=== PATIENT | male | born 1960 | race Caucasian/White ===

== ENCOUNTER 2019-03-03 04:15 | Outpatient (CLI) | payer BC, SELFPAY ==
[2019-03-03 11:17] LABS: ALT 27 U/L (12-78); AST 14 U/L (15-37); Alkaline Phosphatase 55 U/L (46-116); Anion Gap 5.6 mmol/L (3-11); BUN 19 mg/dL (7-18); Bilirubin, Total 0.5 mg/dL (0.2-1.0); CO2 30.4 mmol/L (21.0-32.0); CREATININE 0.85 mg/dL (0.70-1.30); Calcium 9.1 mg/dL (8.5-10.1); Chloride 104 mmol/L (98-107); Glucose 96 mg/dL (70-100); Potassium 4.8 mmol/L (3.5-5.1); Sodium 140 mmol/L (136-145); TSH 1.88 uIU/mL (0.36-3.74); Total Protein 7.2 g/dL (6.4-8.2)
== END 2019-03-03 04:35 ==
PROVIDERS: PCP Emergency Medicine; Visit Provider Emergency Medicine
DX: R00.2 Palpitations (principal)
CPT/HCPCS: 36415; 80053; 84443

== ENCOUNTER 2019-03-06 01:48 | Outpatient (CLI) | payer BC, SELFPAY | END 2019-03-06 02:08 | PROVIDERS: PCP Emergency Medicine; Visit Provider Emergency Medicine | DX: R00.2 Palpitations (principal); I49.1 Atrial premature depolarization | CPT/HCPCS: 93225 ==

== ENCOUNTER 2019-03-09 09:40 | Outpatient (CLI) | payer BC, SELFPAY ==
--- NOTE | 2019-03-10 15:46 | HOLTER_ITS ---
DATE OF DICTATION: March 10, 2019 INDICATION: Palpitations 48-HOUR HOLTER MONITOR Baseline sinus rhythm. Average heart rate 77 bpm, minimum heart rate 53 bpm, maximum heart rate 168 bpm. Rare ventricular ectopy. One isolated 5-beat run of non-sustained VT. Rare isolated PAC's. No significant pauses or bradyarrhythmias. No diary entries.
== END 2019-03-09 10:00 ==
PROVIDERS: PCP Emergency Medicine; Visit Provider Emergency Medicine
DX: R00.2 Palpitations (principal); I49.1 Atrial premature depolarization
CPT/HCPCS: 93226

== ENCOUNTER 2019-12-04 14:56 | Inpatient (IN) | payer BC, SELFPAY ==
[2019-12-04] VITALS (53 sets, daily range): BP systolic 91–106; BP diastolic 62–87; PULSE 0–137; RESP 12–30; TEMP 36.7–38.3; O2SAT 84–100
[2019-12-04] MEDS: Normal Saline Flush 10 ML SYR IVP ×2 (15:30→22:40)
--- NOTE | 2019-12-04 15:30 | DI.CT_ITS ---
EXAM: CT CHEST PE ABD PELVIS W CLINICAL HISTORY: abdominal pain RLQ, n/v, fever, SOB. TECHNIQUE: Imaging Protocol: Axial computed tomography images with coronal and sagittal reformatted images were created and reviewed CONTRAST MATERIAL: Intravenous: Omnipaque 350 Contrast volume:72 ml Contrast route:IV - Oral: No no COMPARISON: CHEST 2 VIEWS PA,LAT from 03/31/2012 FINDINGS: CHEST: Heart and great vessels: There is no evidence pulmonary emboli or aortic dissection. Aortic root is dilated at 4.5 cm. The ascending aorta measures 3.1 cm. There is mild left ventricular enlargement. No coronary artery calcifications are visible. There is no significant aortic calcification. There are no pleural or pericardial effusions. Adenopathy: None. Lungs: No pulmonary nodules, mass or infiltrate. There are mild emphysematous changes at the lung ap ices. There are dependent changes. Mild scarring is seen laterally in the left chest. Bones: There are old left rib fracture deformities. A fixation plate is noted in the left clavicle. ABDOMEN: Liver: Normal density. No measurable mass. Gallbladder and biliary tract: No radiodense calculus or dilation. Pancreas: Normal density, no abnormal calcifications or inflammatory process. Spleen: Normal. Kidneys: Normal size, contour and axis. No radiodense stones or obstructive uropathy. No masses seen. Adrenal glands: No masses seen. Abdominal Aorta: Abdominal portion non-dilated. Ectatic and mildly calcified. PELVIS: Bladder: No gross wall thickening, focal mass or stones. Bowel: There is fluid in the stomach. The appendix is dilated to 14 millimeters. There is surroundin g stranding in the fat. No abscess, free air or free fluid is seen. There is mild reactive small bow el dilatation. There are scattered diverticula in the sigmoid colon but no evidence of diverticuliti s. Bones: Degenerative disc changes. Slight compression of the superior endplate of L 2, chronic. Reproductive organs: Mildly enlarged prostate. Lymph nodes: Unremarkable. Impression: Findings consistent with acute appendicitis. No abscess or perforation. No acute abnormality is see n in the chest. DATA REPOSITORY: All CT scans at this facility are submitted to the National Radiology Data Registry (NRDR) Dose Index Registry (DIR) with the [employer] (ACR). RADIATION OPTIMIZATION: All CT scans at this facility use at least one of these dose optimization te chniques: automated exposure control; mA and/or kV adjustment per patient size (includes targeted exa ms where dose is matched to clinical indication); or iterative reconstruction.
[2019-12-04] MEDS: Acetaminophen 500 MG TAB 1000 MG PO (15:36)
[2019-12-04] MEDS: Normal Saline 1,000 ML 1000 ML IV ×2 (15:38→17:00)
[2019-12-04] MEDS: Ondansetron 4 MG/2 ML VIAL IVP (15:42)
[2019-12-04] MEDS: HYDROmorphone 2 MG/ML VIAL 1 MG IVP (15:44)
[2019-12-04 15:50] LABS: HCT 44.7 % (40.0-50.0); HGB 15.8 g/dL (13.5-17.5); Mean Corp. HGB Concentration 35.3 g/dL (32.0-36.0); Mean Corpuscular Hemoglobin 32.8 pg (27.0-33.0); Mean Corpuscular Volume 92.7 fL (80-95); Mean Platelet Volume 10.1 fL (8.0-11.0); RBC 4.82 m/cumm (4.50-6.00); RBC Distribution Width 12.6 % (11.8-14.1)
[2019-12-04 16:09] LABS: ALT 29 U/L (16-63); AST 19 U/L (15-37); Albumin 3.9 g/dL (3.4-5.0); Alkaline Phosphatase 84 U/L (46-116); Anion Gap 10.7 mmol/L (3-11); BUN 15 mg/dL (7-18); Bilirubin, Total 1.9 mg/dL (0.2-1.0); CO2 24.3 mmol/L (21.0-32.0); Calcium 9.4 mg/dL (8.5-10.1); Chloride 100 mmol/L (98-107); Diff Comment Manual Differential; Estimated GFR 44.46 (mL/min/1.73m2); Glucose 136 mg/dL (74-106); Lipase 87 U/L (73-393); Potassium 3.8 mmol/L (3.5-5.1); RBC Morphology Normal; Sodium 135 mmol/L (136-145); Total Protein 7.6 g/dL (6.4-8.2)
[2019-12-04 16:10] LABS: Absolute Lymphocyte Count 0.11 k/cumm (1.2-3.4); Absolute Neutrophil Count 1.66 k/cumm (1.2-6.7); Platelet Count 233 x1000/uL (130-400)
--- NOTE | 2019-12-04 16:21 | ED.GENADUL_ITS ---
Discharge Plan Disposition Patient Disposition: OTHER Discharge Details Chief Complaint: Abd Prob Clinical Impression: Appendicitis Admit Date/Time: 12/04/19 18:54 Admit Provider: Olga Forrest Attending Provider: Olga Forrest Primary Care Provider: Harpal Damian ED Provider: Elijah Mckoy Discharge Data Discharge Date/Time-TO BE ENTERED AT DEPARTURE: 12/04/19 19:33 Medical Decision Making <NURIS Denise - Last Filed: 12/05/19 08:39> 58-year-old patient presenting the emergency room appearing quite uncomfortable at this time. Patient appears somewhat flushed and ill-appearing. Patient is notably tachycardic. Patient reports 2-1/2 days of abdominal pain associated with several episodes of vomiting after any attempted p.o. intake. Patient reports no bowel movements in the last 3 days. Patient denies any obvious chest pain however does report mild shortness of breath on arrival to the emergency room and is reporting feeling somewhat anxious. Patient reports abdominal pain 8 out of 10 throughout the last 2 days somewhat improved to 7 out of 10 at this time associated several episodes of vomiting and mild persistent nausea. Patient reports pain is constant causing difficulty sleeping in the last 2 days. Patient reports today he began to feel somewhat febrile and chilled. Patient has a temperature of 100.1 at this time on initial presentation patient does appear uncomfortable, has clear breath sounds, was notably tachycardic. Patient has hypoactive bowel sounds throughout has moderate upper right-sided abdominal tenderness, mild right lower abdominal tenderness however this is where patient indicates the majority of his pain. Patient is guarding his abdominal exam. Very mild rebound noted on the right with palpation of the left. No obvious dis tention. No abdominal bruising. We will plan to obtain IV access, check labs and order CT of his chest abdomen and pelvis. We will plan to include the chest as patient is complaining of mild shortness of breath and has a fever to rule out any obvious Covid findings or pulmonary embolism given his notable tachycardia on initial presentation. We will give Dilaudid and Zofran for symptomatic relief as well as Tylenol for fever control. 1 L of IV fluid ordered. Initial EKG reveals a heart rate of 123, sinus tachycardia, nonspecific ST depressions noted in V4 and V5 and V6, 1 mm of depression noted. This was reviewed with Dr. Thomas Initial labs reveal leukopenia with a WBC of 1.8. 26 bands noted Patient signed out pending CT evaluation in disposition. <NURIS De La Rosa - Last Filed: 12/04/19 18:43> I assumed care of this 58-year-old gentleman at shift change pending the rest of his laboratory values, CT imaging, and final disposition. Patient was in CT, it was brought to my attention that he seemed to have some confusion. Will obtain CT of his head without contrast as well given his fever, potential altered mental status. He has had a right lower abdominal pain for the past 2-1/2 days associate with nausea, vomiting, low-grade fever. He does report chronic mild shortness of breath. Upon evaluation he appears in mild distress, head normocephalic, moist mucous membranes, lungs clear to auscultations, heart tachycardia at 112. Abdomen with right lower quadrant discomfort, guarding, rebound, bowel sounds equal throughout. Examination is certainly concerning for a surgical abdomen. During my evaluation he did not seem altered to me. Fever is increasing after the p.o. Tylenol was given, a second liter of IV fluid given. Upon reevaluation heart rate of 102. Laboratory values reveal a white count of 1.8, platelets 233, absolute lymphocytes 0.11, absolute monocytes 0.00. Creatinine of 1.6 with estimated GFR of 44.46. Lactate of 3.1. Total bilirubin 1.9 CT of head, as above, was added on and unfortunately it was performed with contrast. Per virtual radiology CT was unremarkable. CT chest, abdomen, pelvis read by virtual radiology as acute appendicitis, 14 mm, positive stranding, positive fluid level within the appendix. No obvious current perforation. CT findings discussed with patient. He was given 3.375 of IV Zosyn. Call placed out to Dr. Forrest, surgical team. I spoke with NURIS Jackson, she is aware of the case, and accepts admission. Given patient will be admitted, COVID testing to be obtained. Anesthesia did call me regarding the initial presentation and question of subtle ST depression in the EKG. Now that the patient has received 2 L IV fluid and heart rate is more appropriate will obtain repeat EKG to further assess. He denies any chest pain to me whatsoever. There was a delay in the initial troponin that was ordered however when it resulted it was less than 0.05. Repeat EKG obtained at 1753. Reviewed interpreted with Dr. Thomas. Sinus rhythm, ventricular rate of 94. Appears to have inverted T wave, in no acute ST segment elevation or depression. NURIS Jackson to the ER to evaluate the patient. Pending admission Medical Records Medical records reviewed: Yes I reviewed the patient's medical records. Lab Data Lab results reviewed: Yes I reviewed the patient's lab results. Lab results narrative: 12/04/19 16:15 Blood Blood Culture - Pending 12/04/19 15:30 Blood Blood Culture - Pending Laboratory Tests Range/Units 12/04/19 12/04/19 12/04/19 15:30 15:30 15:30 WBC (4.4-10.8) k/cumm 1.80 L* RBC (4.50-6.00) m/cumm 4.82 Hgb (13.5-17.5) g/dL 15.8 Hct (40.0-50.0) % 44.7 MCV (80-95) fL 92.7 MCH (27.0-33.0) pg 32.8 MCHC (32.0-36.0) g/dL 35.3 RDW (11.8-14.1) % 12.6 Plt Count (130-400) x1000/uL 233 MPV (8.0-11.0) fL 10.1 Immature Gran % See Differential Neutrophils % 66.0 Band Neutrophils % % 26.0 Lymphocytes % 6.0 Monocytes % 0.0 Eosinophils % 0.0 Basophils % 0.0 Metamyelocytes % % 2.0 Absolute Neutrophils (1.2-6.7) k/cumm 1.66 Absolute Lymphocytes (1.2-3.4) k/cumm 0.11 L Absolute Monocytes (0.11-0.7) k/cumm 0.00 L Absolute Eosinophils (0.0-0.7) k/cumm 0.00 Absolute Basophils (0.0-0.2) k/cumm 0.00 Differential Comment Manual differential RBC Morphology Normal Sodium (136-145) mmol/L 135 L Potassium (3.5-5.1) mmol/L 3.8 Chloride (98-107) mmol/L 100 Carbon Dioxide (21.0-32.0) mmol/L 24.3 Anion Gap (3-11) mmol/L 10.7 BUN (7-18) mg/dL 15 Creatinine (0.70-1.30) mg/dL 1.60 H Estimated GFR/1.73 m2 (mL/min/1.73m2) 44.46 Glucose (74-106) mg/dL 136 H Lactate (0.6-1.4) mmol/L 3.1 H* Calcium (8.5-10.1) mg/dL 9.4 Total Bilirubin (0.2-1.0) mg/dL 1.9 H AST (15-37) U/L 19 ALT (16-63) U/L 29 Alkaline Phosphatase (46-116) U/L 84 Total Protein (6.4-8.2) g/dL 7.6 Albumin (3.4-5.0) g/dL 3.9 Lipase (73-393) U/L 87 HPI <NURIS Denise - Last Filed: 12/05/19 08:39> General Date/Time Provider Initiated Documentation: 12/04/19 15:04 . HPI Narrative: This is a 58-year-old patient presenting to the emergency room after complaining of 2-1/2 days of abdominal pain associated with the vomiting approximately 4 times in the last 2 days. Patient reports after moving a heavy shed on Wednesday afternoon he went in to have lunch. Patient reports he vomited at lunchtime after trying to eat. Patient reports later in the evening he noted onset of lower right-sided abdominal pain which radiated toward the left side of his abdomen. Patient reports his pain at a 8 out of 10. Patient ports difficulty sleeping Wednesday evening, symptoms persisted through Wednesday, any attempted eating he reports vomiting. Patient reports fairly constant 8 out of 10 pain. Patient again had difficulty sleeping on Wednesday evening. Patient reports today he developed onset of a febrile sensation with mild chills. Denies chest pain. Patient reports abdominal pain is now localized in the right lower quadrant. Denies radiation toward his back. Patient denies urinary urgency, frequency or dysuria. Patient reports persistent nausea today. Patient ports increase in ill feeling today although abdominal pain has somewhat improved to approximately 6 or 7 out of 10 pain. Patient reports feeling dehydrated as he is been unable to hold down fluid and food. Patient does report in route to the emergency room he began to develop mild shortness of breath. Denies chest pain. Worsen with food intake, no significant alleviating factors. No history of similar. Only medication is multivitamin. Related Data Home Medications Medication Instructions Recorded Confirmed multivitamin 1 tab PO DAILY 10/13/18 12/04/19 Allergies Allergy/AdvReac Type Severity Reaction Status Date / Time morphine Allergy Intermediate ITCH Verified 12/04/19 15:04 General Stated Complaint: Abd Prob BOUBACAR: 3 Review of Systems <NURIS Denise - Last Filed: 12/05/19 08:39> All systems reviewed & are unremarkable except as noted in HPI and below Constitutional Constitutional: Reports chills, Reports fever(s) and Reports malaise Cardiovascular Cardiovascular: Reports dyspnea (Onset in route to the ER, patient is feeling anxious) Respiratory Respiratory: Reports cough (Chronic, unchanged for 6 months) and Reports dyspnea (Onset in route to the ER, patient is feeling anxious) Gastrointestinal Gastrointestinal: Reports abdominal pain, Reports constipation (X3 days), Denies diarrhea, Reports nausea and Reports vomiting Genitourinary Genitourinary: Denies difficulty urinating, Denies dysuria, Denies urinary frequency and Denies urinary urgency PFSH <NURIS Denise - Last Filed: 12/05/19 08:39> Medical History (Updated 12/04/19 @ 17:41 by Michelle Jackson) Alcohol intake above recommended sensible limits (Chronic) Carpal tunnel syndrome (Chronic) right Dermoid cyst of left lower extremity (Chronic 02/15/17) History of palpitations (Acute) see holter of 03/2019 Left hydrocele (Resolved) Left hydrocele (Chronic 08/21/16) Palpitations (Acute) Polyp of colon (Resolved) TUBULAR ADENOMA and hyperplastic polyps Raynaud's syndrome (Chronic) Sciatica (Chronic) Shoulder pain (Chronic) right Tobacco use disorder (Chronic) chews Tubular adenoma of colon (Chronic 10/21/16) Unilateral inguinal hernia (Chronic) right Surgical History (Updated 12/04/19 @ 18:03 by Michelle Jackson) Clavicle fracture (Acute) Colonoscopy - IV Sedation (10/21/16) History of nasal surgery (Acute) KNEE REPAIR LEFT Family History Mother No problems noted. Father Essential hypertension Stroke Sister No problems noted. Brother No problems noted. Brother No problems noted. Grandfather No problems noted. Social History Smoking/Tobacco Use Status: Former Tobacco Use Alcohol Intake: current Alcohol Intake frequency: 3 or more drinks per day Alcohol type: beer Drug use: Rarely Substance use type: marijuana Do you feel safe at home: Yes Exam <NURIS Denise - Last Filed: 12/05/19 08:39> Narrative Exam Narrative: CONST: Flushed appearing, uncomfortable, alert and oriented. HENMT: Head nomocephalic, normal to inspection. Atraumatic. Hearing grossly normal. External ear canal no erythema or swelling. TM normal bilaterally. Nose normal to inspection. No rhinnorhea. Normal facial exam. Oral mucosa normal. Tounge normal. Dentition normal. Normal posterior oropharynx. Uvula midline. EYES: General normal appearance. Alignment normal. Eyelids normal. Conjunctiva normal. Sclera normal. PERRL. NECK: Normal visual inspection. FROM. No lymphadenopathy. Trachea midline. No Midline tenderness. CHEST: Normal insepection of the chest. RESP: Normal respiratory effort. Speaking full sentences. No cough. No wheezing. No retractions. Clear to auscaltation. Breath sound equal and present bilaterally. CARDIO: No JVD. Normal PMI. Tachycardic. Regular Rhythm. Normal peripheral pulses. GI: Hypoactive bowel sounds throughout. Normal inspection of abdomen. No distension. Soft. Moderate right upper quadrant tenderness. Mild right lower quadrant tenderness. Mild gaurding. Mild rebound with palpation of the left on the right. MUSCULOSKELETAL: Normal Gait. FROM of all extremities. Distal neurovascularly intact. Sensation intact distally. No distal edema SKIN: Normal. Dry. No rashes. NEURO: Alert and awake. Speech clear. PSYCH: Normal affect. Cooperative. Course <NURIS Denise - Last Filed: 12/05/19 08:39> Vital Signs Vital signs: Vital Signs Temperature 37.2 C 12/04/19 15:01 Pulse 125 H 12/04/19 15:01 Blood Pressure 105/66 12/04/19 15:01 Pulse Oximetry 98 12/04/19 15:01 Temperature 37.8 C H 12/04/19 15:21 Temperature Source Oral 12/04/19 15:21 Pulse 137 H 12/04/19 15:21 Respiratory Rate 30 H 12/04/19 15:21 Respiratory Effort Non-Labored 12/04/19 15:05 Blood Pressure 106/74 12/04/19 15:21 Blood Pressure Position Sitting 12/04/19 15:01 Pulse Oximetry 96 12/04/19 15:21 Oxygen Delivery Method Room Air 12/04/19 15:21 Oxygen Flow Rate 0 12/04/19 15:21 Pain Level 10 12/04/19 15:44 Lab/Test Results Lab/Test Results: 12/04/19 15:30 Blood Blood Culture - Pending 12/04/19 15:08 Blood Blood Culture - Pending Laboratory Tests Range/Units 12/04/19 12/04/19 15:30 15:30 WBC (4.4-10.8) k/cumm 1.80 L* RBC (4.50-6.00) m/cumm 4.82 Hgb (13.5-17.5) g/dL 15.8 Hct (40.0-50.0) % 44.7 MCV (80-95) fL 92.7 MCH (27.0-33.0) pg 32.8 MCHC (32.0-36.0) g/dL 35.3 RDW (11.8-14.1) % 12.6 Plt Count (130-400) x1000/uL 233 MPV (8.0-11.0) fL 10.1 Immature Gran % See Differential Neutrophils % 66.0 Band Neutrophils % % 26.0 Lymphocytes % 6.0 Monocytes % 0.0 Eosinophils % 0.0 Basophils % 0.0 Metamyelocytes % % 2.0 Absolute Neutrophils (1.2-6.7) k/cumm 1.66 Absolute Lymphocytes (1.2-3.4) k/cumm 0.11 L Absolute Monocytes (0.11-0.7) k/cumm 0.00 L Absolute Eosinophils (0.0-0.7) k/cumm 0.00 Absolute Basophils (0.0-0.2) k/cumm 0.00 Differential Comment Manual differential RBC Morphology Normal Sodium (136-145) mmol/L 135 L Potassium (3.5-5.1) mmol/L 3.8 Chloride (98-107) mmol/L 100 Carbon Dioxide (21.0-32.0) mmol/L 24.3 Anion Gap (3-11) mmol/L 10.7 BUN (7-18) mg/dL 15 Creatinine (0.70-1.30) mg/dL 1.60 H Estimated GFR/1.73 m2 (mL/min/1.73m2) 44.46 Glucose (74-106) mg/dL 136 H Calcium (8.5-10.1) mg/dL 9.4 Total Bilirubin (0.2-1.0) mg/dL 1.9 H AST (15-37) U/L 19 ALT (16-63) U/L 29 Alkaline Phosphatase (46-116) U/L 84 Total Protein (6.4-8.2) g/dL 7.6 Albumin (3.4-5.0) g/dL 3.9 Lipase (73-393) U/L 87 Sign Out <NURIS Denise - Last Filed: 12/05/19 08:39> Sign Out Data: Sign Out Comment: Signout pending CT imaging results, hydration, recheck and disposition Last updated by Marion Sharma PA at 12/04/19 16:23
[2019-12-04] MEDS: Omnipaque 350 MG/ML 100 ML BTL IJ (16:26)
[2019-12-04] MEDS: Normal Saline - Diluent 50 ML VIAL IV (16:26)
--- NOTE | 2019-12-04 16:30 | DI.CT_ITS ---
EXAM: CT HEAD W CLINICAL HISTORY: AMS. TECHNIQUE: Imaging Protocol: Axial computed tomography images of the with coronal and sagittal refo rmatted images were created and reviewed. CONTRAST MATERIAL: Intravenous: Omnipaque 350 Contrast volume:72 ml Contrast route:IV-this exam was performed after contrast enhanced CT of the chest abdomen and pelvis. No noncontrast CT was performe d. COMPARISON: CT CHEST PE ABD PELVIS W from 12/04/2019 FINDINGS: Ventricles and Extra axial spaces: Normal in size and morphology for the patient's age. Hemorrhage: No gross evidence hemorrhage. Small amount of hemorrhage could be obscured by IV contras t.. Cerebral parenchyma: Normal. Enhancement: No suspicious enhancement. Midline shift: None. Brainstem/Cerebellum: Normal. Calvarium: Normal. Visualized Paranasal sinuses/Mastoids: Clear. IMPRESSION: No acute abnormality.. RADIATION DOSE DELIVERED: Total DLP DATA REPOSITORY: All CT scans at this facility are submitted to the National Radiology Data Registry (NRDR) Dose Index Registry (DIR) with the [employer] (ACR). RADIATION OPTIMIZATION: All CT scans at this facility use at least one of these dose optimization te chniques: automated exposure control; mA and/or kV adjustment per patient size (includes targeted exa ms where dose is matched to clinical indication); or iterative reconstruction.
[2019-12-04 16:50] LABS: Lactate 3.1 mmol/L (0.6-1.4)
--- NOTE | 2019-12-04 17:04 | DI.VRAD_ITS ---
PROCEDURE INFORMATION: Exam: CT Head With Contrast Exam date and time: 12/04/2019 4:43 PM Age: 58 years old Clinical indication: Altered mental status/memory loss; Patient HX: AMS TECHNIQUE: Imaging protocol: Computed tomography of the head with intravenous contrast. COMPARISON: No relevant prior studies available. FINDINGS: Limitations: Images only obtained with contrast. Brain: No gross intracranial hemorrhage or extra-axial collection is identified, allowing for the lack of precontrast images. There is no significant intracranial mass effect. Ventricles: Normal. No ventriculomegaly. Bones/joints: Unremarkable. No acute fracture. Sinuses: Visualized sinuses are unremarkable. No fluid levels. Mastoid air cells: Visualized mastoid air cells are well aerated. Soft tissues: Unremarkable. IMPRESSION: No CT evidence for acute intracranial abnormality on this contrast-enhanced exam. Dictated and Authenticated by: Karson Mccord MD. Ordering:KIM Nava MD
--- NOTE | 2019-12-04 17:21 | DI.VRAD_ITS ---
PROCEDURE INFORMATION: Exam: CT Angiography Chest With Contrast Exam date and time: 12/04/2019 4:35 PM Age: 58 years old Clinical indication: Abdominal pain; Localized; Right lower quadrant (rlq); Patient HX: Abd pain rlq, n/v, fever, SOB TECHNIQUE: Imaging protocol: Computed tomographic angiography of the chest with intravenous contrast. 3D rendering: MIP and/or 3D reconstructed images were created by the technologist. COMPARISON: No relevant prior studies available. FINDINGS: Pulmonary arteries: Normal. No pulmonary emboli. Aorta: Unremarkable. No aortic aneurysm. No aortic dissection. Lungs: Multiple small blebs are noted in both upper lobes predominantly. There is a mild amount of ground-glass opacity and pleural based consolidation and minimal pleural thickening at both lung bases more prominent on the right. Pleural space: In the left upper lobe there are 2 pleural-based the roughly 1 cm in diameter densities 1 of which contains some calcification most likely due to previous scarring. Heart: Unremarkable. No cardiomegaly. No pericardial effusion. Mediastinum: There is air-fluid level in the distal esophagus just above the esophageal hiatus. Lymph nodes: Unremarkable. No enlarged lymph nodes. Bones/joints: Unremarkable. No acute fracture. Soft tissues: Unremarkable. IMPRESSION: 1. Mild atelectasis at the lung bases. There is scarring in the left upper lobe as well as at both lung bases. 2. Small air-fluid level in the distal esophagus which is nonspecific. PROCEDURE INFORMATION: Exam: CT Abdomen And Pelvis With Contrast Exam date and time: 12/04/2019 4:35 PM Age: 58 years old Clinical indication: Abdominal pain; Localized; Right lower quadrant (rlq); Patient HX: Abd pain rlq, n/v, fever, SOB TECHNIQUE: Imaging protocol: Computed tomography of the abdomen and pelvis with intravenous contrast. COMPARISON: No relevant prior studies available. FINDINGS: Liver: Normal. No mass. Gallbladder and bile ducts: Normal. No calcified stones. No ductal dilation. Pancreas: Normal. No ductal dilation. Spleen: Normal. No splenomegaly. Adrenals: Normal. No mass. Kidneys and ureters: Normal. No hydronephrosis. Stomach and bowel: Stomach is moderately distended with the large air-fluid level. There is a prominent amount of fluid within the small bowel but the small bowels not really significantly dilated largest loop appears to be 2. 4 cm in diameter. There are few diverticula left colon without surrounding inflammation. Appendix: The appendix appears to be dilated up to 14 mm. There is a large amount of inflammatory a ill-defined density surrounding the appendix. Intraperitoneal space: There is no definite extraluminal air or focal fluid collection to suggest a drainable abscess Vasculature: Unremarkable. No abdominal aortic aneurysm. Lymph nodes: Unremarkable. No enlarged lymph nodes. Bladder: The bladder ross moderately well distended but the wall appears slightly thickened. Reproductive: Prostate gland is mildly enlarged. Seminal vesicles are larger than average but appear homogeneous without focal mass. Bones/joints: Unremarkable. No acute fracture. Soft tissues: Unremarkable. IMPRESSION: Findings consistent with acute appendicitis without evidence of abscess or definite rupture. However the appendix is markedly distended and is most likely on the verge of rupture. These findings were discussed with in physician's physician assistant [place] by telephone on December 04, 2019 at 5:16 p.m. Eastern standard time . Dictated and Authenticated by: Karson Zaragoza MD. Ordering:SINDY Schultz MD
--- NOTE | 2019-12-04 17:38 | HPE_ITS ---
Assessment and Plan Assessment and plan (1) Acute appendicitis: Status: Acute Assessment and plan: Plan: Patient's troponin was <0.05 (normal range). P atient is being tested for Covid-19. Educated patient on surgery covering surgical technique, recovery process, benefits and risks including but not limited to risk of infection, blood clot, damage to soft tissue/blood vessels/nerves in detail. After discussion patient gives verbal understanding of risks and elects to proceed with scheduling surgery. Patient had opportunity to have questions answered to their satisfaction. They will contact office if issues arise. Patient will continue to be scheduled for laparoscopic appendectomy possible open with Dr. Forrest. History of Present Illness Narrative: Mr. Kemp is a 58-year-old male with pertinent past medical history of hypertension and alcohol use who presents to the ER for complaints of abdominal pain, nausea, vomiting and fever which is been ongoing for 2 days. His abdominal pain has worsened over the course of today. He currently describes it as a constant diffuse pain but prior to receiving medication in the ER states it was severe pain in his right lower abdomen. He has been unable to eat and drink without vomiting over the past 24 hours. Normally he reports 2-3 bowel movements daily but has not had any bowel movements for >24 hours. He has continued to be active including moving wood but started to develop shortness of breath with activity. This evening his GI symptoms progressed causing him to present to the ER. States he has had a cough for >1 year; denies any recent change. He denies any contact with Covid-19 positive persons. Additionally, at initial presentation to ER he had tachycardia. Denies any feelings of heart palpitations, chest pain, tachycardia, bradycardia or irregular heart beat. Pertinent Surgical Information Denies prior complications from surgery or anesthesia. States difficulty waking up one time after he had nose surgery; does not have any additional information. Review of Systems Constitutional Constitutional: Reports fever(s) Cardiovascular Cardiovascular: Denies chest pain, Denies rapid heart rate, Denies irregular heart rhythm, Reports dyspnea (earlier today) and Denies slow heart rate Comments: reports history of palpations with too much drinking (6 pack) Respiratory Respiratory: Reports cough (>1 yr; no change) and Reports dyspnea (earlier today) Gastrointestinal Gastrointestinal: Reports abdominal pain, Reports constipation (normally goes 2- 3 daily; has not for 24 hours), Reports nausea and Reports vomiting REPLACED BY [facility] Medical History (Updated 12/04/19 @ 17:41 by Michelle Jackson) Alcohol intake above recommended sensible limits (Chronic) Carpal tunnel syndrome (Chronic) right Dermoid cyst of left lower extremity (Chronic 02/15/17) History of palpitations (Acute) see holter of 03/2019 Left hydrocele (Resolved) Left hydrocele (Chronic 08/21/16) Palpitations (Acute) Polyp of colon (Resolved) TUBULAR ADENOMA and hyperplastic polyps Raynaud's syndrome (Chronic) Sciatica (Chronic) Shoulder pain (Chronic) right Tobacco use disorder (Chronic) chews Tubular adenoma of colon (Chronic 10/21/16) Unilateral inguinal hernia (Chronic) right Surgical History (Updated 12/04/19 @ 18:03 by Michelle Jackson) Clavicle fracture (Acute) Colonoscopy - IV Sedation (10/21/16) History of nasal surgery (Acute) KNEE REPAIR LEFT Family History Mother No problems noted. Father Essential hypertension Stroke Sister No problems noted. Brother No problems noted. Brother No problems noted. Grandfather No problems noted. Social History Smoking/Tobacco Use Status: Former Tobacco Use Alcohol Intake: current Alcohol Intake frequency: 3 or more drinks per day Alco hol type: beer Drug use: Rarely Substance use type: marijuana Do you feel safe at home: Yes Meds Home Medications and Allergies Home Medications Medication Instructions Recorded Confirmed Type multivitamin 1 tab PO DAILY 10/13/18 12/04/19 History Allergies Allergy/AdvReac Type Severity Reaction Status Date / Time morphine Allergy Intermediate ITCH Verified 12/04/19 15:04 Exam Const General: cooperative and no acute distress Resp Effort & Inspection: normal respiratory effort, able to speak in complete sentences and cough Quality of cough: dry (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 EKG: other (Latest EKG at 17:53 showed sinus rhythm, heart rate of 94; no significant ST changes are noted; previous EKG completed at 15:52 showed sinus tachycardia with a rate of 123, ST depressions were also noted in V4-V6; reviewed EKG findings with Dr. Forrest) Labs Result diagrams: 12/04/19 15:30 12/04/19 15:30 Labs: Laboratory Results - last 24 hr 12/04/19 12/04/19 12/04/19 15:30 15:30 15:30 WBC 1.80 L* RBC 4.82 Hgb 15.8 Hct 44.7 MCV 92.7 MCH 32.8 MCHC 35.3 RDW 12.6 Plt Count 233 MPV 10.1 Immature Gran % See Differential Neutrophils % 66.0 Band Neutrophils % 26.0 Lymphocytes % 6.0 Monocytes % 0.0 Eosinophils % 0.0 Basophils % 0.0 Metamyelocytes % 2.0 Absolute Neutrophils 1.66 Absolute Lymphocytes 0.11 L Absolute Monocytes 0.00 L Absolute Eosinophils 0.00 Absolute Basophils 0.00 Differential Comment Manual differential RBC Morphology Normal Sodium 135 L Potassium 3.8 Chloride 100 Carbon Dioxide 24.3 Anion Gap 10.7 BUN 15 Creatinine 1.60 H Estimated GFR/1.73 m2 44.46 Glucose 136 H Lactate 3.1 H* Calcium 9.4 Total Bilirubin 1.9 H AST 19 ALT 29 Alkaline Phosphatase 84 Total Protein 7.6 Albumin 3.9 Lipase 87 Last Vital Signs Temp 38.3 C H 12/04/19 16:51 Pulse 103 H 12/04/19 17:15 Resp 17 12/04/19 17:20 BP 97/70 L 12/04/19 17:15 Pulse Ox 99 12/04/19 17:20
[2019-12-04] MEDS: PIPERACILLIN/TAZO 3.375 GM in Normal Saline 50 ML IVPB ×2 (17:39→23:45)
[2019-12-04 18:22] LABS: Troponin I < 0.05 ng/Ml (<0.06)
[2019-12-04 18:28] LABS: Bilirubin Negative (Negative); Blood Trace-intact (Negative); Clarity Clear (Clear); Glucose Negative (Negative); Ketones Negative (Negative); Leukocyte Esterase Negative (Negative); Nitrite Negative (Negative); Specific Gravity <= 1.005 (1.005-1.025); Urobilinogen 0.2 EU/dL (Up TO 0.2); pH 5.5 (5-8)
[2019-12-04 18:43] LABS: Bacteria Moderate HPF (Negative); Crystals Negative HPF (Negative); Epithelial Cells Negative HPF (Negative); Mucus Negative (Negative); WBC 20-50 HPF (0-5)
[2019-12-04 18:44] LABS: C & S Indicated? Yes
[2019-12-04] MEDS: Lactated Ringers 1,000 ML 75 ML IV ×2 (19:48→20:56)
--- NOTE | 2019-12-04 19:49 | ROE_ITS ---
Date of service: 12/04/19 Time of Service: 21:14 Operative Note Operative Note DATE OF PROCEDURE: 12/04/19 PRE-OP DIAGNOSIS: Acute Appendicitis Gangrenous appendicitis PROCEDURE: Laparoscopic Appendectomy SURGEON: Olga Forrest FLOOR LAYER APPRENTICE: Niya Manley ANESTHESIA: GETA and local (Exparel mixed 50/50 with 0.5 % Bupivocaine) ESTIMATED BLOOD LOSS: 50 PATHOLOGY: other (Appendix) COMPLICATIONS: None Patient was transported to: floor Patient's condition: stable Implants: None Indications: 58 year old male seen in the ER for abdominal pain. Workup revealed Low WBC count at 1.8, left shift and CT scan showed an inflammed and enlarged appendix. Findings: Gangreous appendix Procedure Description: After informed consent was obtained the patient was taken to the operating room placed in the supine position SCDs were applied as well as monitors. A timeout was done. The patient was then placed under general anesthesia and intubated without any difficulty. COVID-19 precuations were observed with staff wearing N-95 masks due to patients unknown COVID status. Next a Greco catheter was placed in a standard surgical fashion. His abdominal Hair was then clipped. Next he abdomen was prepped and draped in a sterile surgical fashion with chlorhexidine. A second timeout was done and the patient's name, date of , operation to be performed, DVT prophylaxis, antibiotic given, and fire risk was assessed. Exparel was mixed 50-50 with 0.5% Bupivocaine. The mixture was injected into the dermis just above the umbilicus. A small 5 mm incision was made with an 11 blade. A small umbilical hernia was identified. A 5 mm Visiport was easily placed through the hernia defect into the abdomen. The abdomen was insufflated. Local anesthetic was then injected just above the pubic symphysis . A small 5 mm incision was made with an 11 blade and another 5 mm port was placed under direct visualization into the abdomen. The local anesthetic was then injected in the left lower quadrant area and a 11 mm incision was made with an 11 blade. A 11 mm port was then placed under direct visualization. The patient's bed was then turned to the left head down allowing me to sweep of the small bowel out of the right lower quadrant. The cecum was gently grasped and the appendix was identified. There were adhesions noted from the cecum to the peritoneum. The adhesions were carefully taken down with a laparoscopic ligasure. The appendix was inflammed and thickened. There were areas of necrosis noted. The tip was eventualli identified and was quite dilated and inflammed. A small flegmon was i dentified around the tip. The appendix was grasped at the neck and pulled up slightly allowing me to visualize the junction with the cecum. Using the Olga Lidia dissector a small window was made in the meso-appendix. Using the laparoscopic LigaSure the mesoappendix was slowely transected starting at the tip and moving towards the neck, being carefull not to injure the terminal ileum. Once the meso-appendix was transected, the appendix was transected with the laparoscopic stapler at its junction with the cecum. The appendix was placed into an Endo Catch bag and removed through the 11 mm port site. The port was placed back into the abdomen and the staple line was identified. No bleeding was noted. The transected mesentery was identified and no bleeding was noted. The abdomen was then irrigated with 1000 cc of warm normal saline. The effluent was clear. The staple line was inspected one more time and no bleeding was identified at this point. The 2 5 mm ports were then removed under direct visualization and no bleeding was noted from the fascia. The insufflation was stopped and the 11 mm port was removed. The 11 mm port site fascia was closed with a 0 Vicryl [id number]-[id number] suture. All 3 incisions were then closed with a 4-0 vicryl subcuticular running stitch. The skin was cleaned and dried and skin affix was applied. The patient was woken up extubated andrecovered in the Operating room. Once recovered he was taken [place] [facility] [place] There were no immediate complications. Sponge, instrument and needle counts were correct at the end of the case x2.
[2019-12-04] MEDS: Bupivacaine LIPOSOME/PF 133 MG/10 ML VIAL IJ (20:06)
[2019-12-04] MEDS: Bupivacaine 0.5% Pres-Free 30 ML VIAL (20:06)
--- NOTE | 2019-12-04 20:41 | APP_PTH ---
PATIENT: Tai Kemp LOC: [id number] AGE/SX: 58/M ROOM: [id number] RE12/04/[address]: Olga Forrest MD : 1960 BED: A DIS: 12/05/2019 SPEC #: [id number] RECD: 12/05/19 09:42 STATUS: [place] REQ #: [id number] BOBBY: 12/04/19 20:[address]: Olga Forrest DEPT: Surgical Specimen RECD BY: Quinton Rojas ENTERED: 12/05/19 09:42 SP TYPE: Appendix OTHR DR: Harpal Damian DO Tissues: 1 - APPENDIX NOT INCIDENTAL Procedures: GROSS AND MICRO LEVEL 3 Comments: [id number]
[2019-12-04] MEDS: Pantoprazole 40 MG VIAL IVP (22:40)
[2019-12-05 00:25] VITALS: BP 102/67; PULSE 75; RESP 19; TEMP 37; O2SAT 95
[2019-12-05] MEDS: Albuterol 2.5 MG/3 ML INH SOLN VIAL UPD (00:57)
[2019-12-05 01:21] VITALS: RESP 2
[2019-12-05 04:16] VITALS: BP 109/68; PULSE 85; RESP 17; TEMP 37.3; O2SAT 95
[2019-12-05] MEDS: PIPERACILLIN/TAZO 3.375 GM in Normal Saline 50 ML IVPB ×2 (05:49→12:35)
[2019-12-05] MEDS: Lactated Ringers 1,000 ML 125 ML IV ×2 (05:49→06:38)
[2019-12-05] MEDS: Acetaminophen 325 MG TAB 650 MG PO (06:09)
[2019-12-05 07:30] VITALS: BP 96/60; PULSE 67; RESP 19; TEMP 36.8; O2SAT 97
[2019-12-05 07:35] LABS: Abs Immature Grans 0.12 k/cumm (0.0-0.09); HCT 35.1 % (40.0-50.0); Mean Corp. HGB Concentration 34.2 g/dL (32.0-36.0); Mean Corpuscular Hemoglobin 32.6 pg (27.0-33.0); Mean Corpuscular Volume 95.4 fL (80-95); Mean Platelet Volume 10.1 fL (8.0-11.0); Platelet Count 182 x1000/uL (130-400); RBC 3.68 m/cumm (4.50-6.00); RBC Distribution Width 13.1 % (11.8-14.1); White Blood Cell Count 12.54 k/cumm (4.4-10.8)
[2019-12-05 07:46] LABS: Anion Gap 7.4 mmol/L (3-11); BUN 19 mg/dL (7-18); CO2 25.6 mmol/L (21.0-32.0); CREATININE 1.54 mg/dL (0.70-1.30); Calcium 7.7 mg/dL (8.5-10.1); Chloride 106 mmol/L (98-107); Estimated GFR 46.47 (mL/min/1.73m2); Glucose 117 mg/dL (74-106); Potassium 3.9 mmol/L (3.5-5.1); Sodium 139 mmol/L (136-145)
[2019-12-05 08:30] LABS: COVID-19 RT-PCR UVMMC Result Negative (Negative)
[2019-12-05 08:32] LABS: Absolute Basophil Count 0.13 k/cumm (0.0-0.2); Absolute Eosinophil Count 0.25 k/cumm (0.0-0.7); Absolute Monocyte Count 0.88 k/cumm (0.11-0.7); Absolute Neutrophil Count 10.28 k/cumm (1.2-6.7); Atypical Lymphocytes % 2; Diff Comment Manual Differential; RBC Morphology Normal
--- NOTE | 2019-12-05 09:07 | PDOC.CMIN ---
- If Service Date Differs Date of service: 12/05/19 Time of Service: 09:07 Care Management Initial Assess REASON FOR HOSPITALIZATION:: Acute Appendicitis
--- NOTE | 2019-12-05 09:47 | W.PM.PROGNOT ---
Date of Service Date of service: 12/05/19 Time of Service: 09:47 Assessment and Plan Assessment and plan (1) S/P laparoscopic appendectomy: Status: Acute Assessment and plan: A\\ POD#1 s/p Laparoscopic Appendectomy for gangrenous appendix Pain is well controlled on Toradol and oxycodon He has tolerated a clear liquid diet and is hungry P\\ 1. Advance diet to regular 2. Needs to ambulate 3. Saline lock IV 4. May shower 5. Patient is eager to be discharged- If he tolerates a diet and he stays afebrile then may D/C home later today on po antibiotics. (2) Hydrocele, bilateral: Status: Acute Assessment and plan: A\\ Large Bilateral Hydroceles On exam the left hydrocele feels very firm which may just be due to the amount of fluid but there could also be an underlying mass Hydroceles were drained by Dr. Flowers a few years ago and recurred He is an avid biker P\\ US of the scrotum to rule out a mass Consult requested from Dr. Flowers (3) Chronic cough: Status: Acute Assessment and plan: A\\ 1 Year of Chronic productive cough Sputum is clear/white. Patient was seen by ENT at [facility] in the past who did a scope and found no issues Discussed with patient referral to Biomedical Repair Technician CT scan of chest done yesterday showed some scarring and mild emphysematous changes COVID test negative P\\ Referral placed to Pulmonology Discussed with patients PCP Dr. Damian (4) Leukocytosis: Status: Acute Assessment and plan: A\\ Mild Leukocytosis On antibiotics P\\ Continue on antibiotics for 7 days Qualifiers: Leukocytosis type: lymphocytosis Qualified Code(s): D72.820 - Lymphocytosis (symptomatic) (5) Elevated serum creatinine: Status: Acute Assessment and plan: A\\ Slight improvement since yesterday Patient has been hydrated over night and has a good urine output Suspect this is due to patients dehydration on admission P\\ Should see his PCP in a few weeks to recheck Subjective Subjective Interval history since last seen: Mr. Kemp is doing well this am. He wants to go home. He is hungry. He tolerated a clear liquid diet without N/V. His only complaint is not being able to sleep last night because the nursing staff was loud all night. I spoke to Kaitlin about that this morning. He had a low grade fever last night but none so far today. Concerned about how much sputum he is coughing up. He has had this issue for 1 year. He saw an ENT at [facility] who stated he could not find any issues. He was given a medication to try but the patient didn't like the way it made him feel. He has not seen a fastener technologist. I discussed my exam findings of his scrotum as well. Definitely has a large hydrocele on the right. I am concerned about the left because it was very hard to touch. This could just be because of how much fluid is in there but I want to make sure there is not a mass. Patient is OK with that. we also discussed a consult with Dr. Flowers who drained the Hydroceles in the past. Patient is agreeable to that. Exam Const General: cooperative and no acute distress Orientation: alert and oriented x3 HENMT Head: normocephalic and atraumatic Resp Effort & Inspection: normal respiratory effort Auscultation: rhonchi lower bilaterally Cardio Rate: regular rate Rhythm: regular rhythm Heart Sounds: no gallops, no murmurs and no rubs GI Inspection: normal to inspection and incision (c/d/i) Palpation: soft and tender (appropriatly tender around the incisions) Auscultation: normal bowel sounds Abdomen image: 1. 2. 3. Penis: normal penis Meatus: meatus normal Scrotum: hydrocele bilaterally (Left is hard to palpation.) Objective Objective Clinical Data: Abnormal lab results 12/04/19 12/04/19 12/04/19 Range/Units 15:30 15:30 15:30 WBC 1.80 L* (4.4-10.8) k/cumm RBC (4.50-6.00) m/cumm Hgb (13.5-17.5) g/dL Hct (40.0-50.0) % MCV (80-95) fL Absolute Neutrophils (1.2-6.7) k/cumm Absolute Lymphocytes 0.11 L (1.2-3.4) k/cumm Absolute Monocytes 0.00 L (0.11-0.7) k/cumm Sodium 135 L (136-145) mmol/L BUN (7-18) mg/dL Creatinine 1.60 H (0.70-1.30) mg/dL Glucose 136 H (74-106) mg/dL Lactate 3.1 H* (0.6-1.4) mmol/L Calcium (8.5-10.1) mg/dL Total Bilirubin 1.9 H (0.2-1.0) mg/dL Urine Protein (Negative) mg/dL Urine Blood (Negative) Urine RBC (0-2) HPF Urine WBC (0-5) HPF 12/04/19 12/05/19 12/05/19 Range/Units 18:20 07:20 07:20 WBC 12.54 H D (4.4-10.8) k/cumm RBC 3.68 L (4.50-6.00) m/cumm Hgb 12.0 L D (13.5-17.5) g/dL Hct 35.1 L D (40.0-50.0) % MCV 95.4 H (80-95) fL Absolute Neutrophils 10.28 H (1.2-6.7) k/cumm Absolute Lymphocytes 1.00 L (1.2-3.4) k/cumm Absolute Monocytes 0.88 H (0.11-0.7) k/cumm Sodium (136-145) mmol/L BUN 19 H (7-18) mg/dL Creatinine 1.54 H (0.70-1.30) mg/dL Glucose 117 H (74-106) mg/dL Lactate (0.6-1.4) mmol/L Calcium 7.7 L (8.5-10.1) mg/dL Total Bilirubin (0.2-1.0) mg/dL Urine Protein 30 H (Negative) mg/dL Urine Blood Trace-intact H (Negative) Urine RBC 10-20 H (0-2) HPF Urine WBC 20-50 H (0-5) HPF Vital Signs Temperature 98.2 F 12/05/19 07:30 Temperature Source Tympanic 12/05/19 07:30 Pulse 67 12/05/19 07:30 Pulse Rhythm Regular 12/05/19 08:49 Pulse 91 H 12/04/19 19:20 Respiratory Rate 19 12/05/19 07:30 Respiratory Effort Non-Labored 12/05/19 08:49 Respiratory Depth Normal 12/05/19 08:49 Respiratory Pattern Normal 12/05/19 08:49 Blood Pressure 96/60 L 12/05/19 07:30 Blood Pressure Mean 71 12/04/19 19:17 Blood Pressure Position Sitting 12/04/19 15:01 Pulse Oximetry 97 12/05/19 07:30 Respiratory End-tidal CO2 21 12/04/19 21:11 Oxygen Delivery Method Room Air 12/05/19 07:30 Oxygen Flow Rate 0 12/05/19 07:30 Pain Level 2 12/05/19 06:09 Intake & Output 12/04/19 12/04/19 12/05/19 11:59 23:59 11:59 Intake Total 3261.25 / 3261.25 718.75 / 718.75 Output Total 250 / 250 450 / 450 Balance 3011.25 / 3011.25 268.75 / 268.75 Weight 180 lb 0.013 oz 180 lb 0.013 oz Intake: IV 3261.25 / 3261.25 718.75 / 718.75 Output: Urine 250 / 250 450 / 450 Other: Urine Color Light Kelly Straw Urine Appearance Clear Clear Stool Size Moderate Stool Characteristics Formed Emesis Description None Voiding Methods Urinal Laboratory Results WBC 12.54 k/cumm (4.4-10.8) H D 12/05/19 07:20 RBC 3.68 m/cumm (4.50-6.00) L 12/05/19 07:20 Hgb 12.0 g/dL (13.5-17.5) L D 12/05/19 07:20 Hct 35.1 % (40.0-50.0) L D 12/05/19 07:20 MCV 95.4 fL (80-95) H 12/05/19 07:20 MCH 32.6 pg (27.0-33.0) 12/05/19 07:20 MCHC 34.2 g/dL (32.0-36.0) 12/05/19 07:20 RDW 13.1 % (11.8-14.1) 12/05/19 07:20 Plt Count 182 x1000/uL (130-400) 12/05/19 07:20 MPV 10.1 fL (8.0-11.0) 12/05/19 07:20 Immature Gran % 0.0 % 12/05/19 07:20 Neutrophils % 73.0 12/05/19 07:20 Band Neutrophils % 9.0 % 12/05/19 07:20 Lymphocytes % 6.0 12/05/19 07:20 Atypical Lymphs % 2 12/05/19 07:20 Monocytes % 7.0 12/05/19 07:20 Eosinophils % 2.0 12/05/19 07:20 Basophils % 1.0 12/05/19 07:20 Metamyelocytes % 1.0 % 12/05/19 07:20 Absolute Neutrophils 10.28 k/cumm (1.2-6.7) H 12/05/19 07:20 Absolute Lymphocytes 1.00 k/cumm (1.2-3.4) L 12/05/19 07:20 Absolute Monocytes 0.88 k/cumm (0.11-0.7) H 12/05/19 07:20 Absolute Eosinophils 0.25 k/cumm (0.0-0.7) 12/05/19 07:20 Absolute Basophils 0.13 k/cumm (0.0-0.2) 12/05/19 07:20 Differential Comment Manual differential 12/05/19 07:20 RBC Morphology Normal 12/05/19 07:20 Sodium 139 mmol/L (136-145) 12/05/19 07:20 Potassium 3.9 mmol/L (3.5-5.1) 12/05/19 07:20 Chloride 106 mmol/L (98-107) 12/05/19 07:20 Carbon Dioxide 25.6 mmol/L (21.0-32.0) 12/05/19 07:20 Anion Gap 7.4 mmol/L (3-11) 12/05/19 07:20 BUN 19 mg/dL (7-18) H 12/05/19 07:20 Creatinine 1.54 mg/dL (0.70-1.30) H 12/05/19 07:20 Estimated GFR/1.73 m2 46.47 (mL/min/1.73m2) 12/05/19 07:20 Glucose 117 mg/dL (74-106) H 12/05/19 07:20 Lactate 3.1 mmol/L (0.6-1.4) H* 12/04/19 15:30 Calcium 7.7 mg/dL (8.5-10.1) L 12/05/19 07:20 Total Bilirubin 1.9 mg/dL (0.2-1.0) H 12/04/19 15:30 AST 19 U/L (15-37) 12/04/19 15:30 ALT 29 U/L (16-63) 12/04/19 15:30 Alkaline Phosphatase 84 U/L (46-116) 12/04/19 15:30 Troponin I < 0.05 ng/Ml (<0.06) 12/04/19 15:30 Total Protein 7.6 g/dL (6.4-8.2) 12/04/19 15:30 Albumin 3.9 g/dL (3.4-5.0) 12/04/19 15:30 Lipase 87 U/L (73-393) 12/04/19 15:30 Urine Color Dark yellow (Yellow) 12/04/19 18:20 Urine Clarity Clear (Clear) 12/04/19 18:20 Urine pH 5.5 (5-8) 12/04/19 18:20 Ur Specific [place] <= 1.005 (1.005-1.025) 12/04/19 18:20 Urine Protein 30 mg/dL (Negative) H 12/04/19 18:20 Urine Ketones Negative mg/dL (Negative) 12/04/19 18:20 Urine Blood Trace-intact (Negative) H 12/04/19 18:20 Urine Nitrite Negative (Negative) 12/04/19 18:20 Urine Bilirubin Negative (Negative) 12/04/19 18:20 Urine Urobilinogen 0.2 EU/dL (Up TO 0.2) 12/04/19 18:20 Ur Leukocyte Esterase Negative (Negative) 12/04/19 18:20 Urine RBC 10-20 HPF (0-2) H 12/04/19 18:20 Urine WBC 20-50 HPF (0-5) H 12/04/19 18:20 Ur Epithelial Cells Negative HPF (Negative) 12/04/19 18:20 Urine Crystals Negative HPF (Negative) 12/04/19 18:20 Urine Bacteria Moderate HPF (Negative) 12/04/19 18:20 Urine Casts 20-50 coarsegranular LPF (Negative) 12/04/19 18:20 Urine Mucus Negative (Negative) 12/04/19 18:20 Ur Culture Indicated? Yes 12/04/19 18:20 Urine Glucose Negative mg/dL (Negative) 12/04/19 18:20 COVID-19 PCR Negative (Negative) 12/04/19 17:45 Nasopharyn COVID-19 PCR Not Applicable 12/04/19 17:45 Ref Test Perform Site [facility] lab 12/04/19 17:45
[2019-12-05] MEDS: Normal Saline Flush 10 ML SYR IVP ×2 (10:10→12:35)
[2019-12-05] MEDS: Furosemide 20 MG/2 ML VIAL IVP (10:10)
--- NOTE | 2019-12-05 11:54 | DI.US_ITS ---
EXAM: US SCROTUM CLINICAL HISTORY: ? Hydrocele bilaterally. TECHNIQUE: Scrotal ultrasound performed using grayscale, color-flow and spectral Doppler analysis. COMPARISON: SCROTUM US from 10/09/2015 CT CHEST PE ABD PELVIS W from 12/04/2019 FINDINGS: Right testicle: 4.1 x 3.6 x 3.1 cm cm Left testicle: 4.2 x 2.8 x 3.4 cm Echogenicity: Normal. Contour: Smooth. Mass: None seen. An 8 millimeter tunica albuginea cyst is again noted in the left testicle. Microlithiasis: None. Hydrocele: There are bilateral septated hydroceles versus multiple epididymal cysts. The approximate measurements on the right is 9 x 5.5 x 5.8 cm. The measurements on the left are 13.5 x 5.6 x 6.5 cm . Variocele: None. Hernia: No peristalsing bowel loop identified. Epididymis: Normal in size bilaterally. Small epididymal head cysts, measuring up to 3 millimeters.. DOPPLER: Color: Symmetric and uniform, no hyperemia. Duplex: Bilateral testicular arterial waveforms visualized. IMPRESSION: Large bilateral epididymal cysts versus septated hydroceles, increasing when compared with the previo us exam.. DATA REPOSITORY:
--- NOTE | 2019-12-05 13:14 | W.NUTRFU ---
Date of service: 12/05/19 Time of Service: 12:00 Nutritional Follow up NOTE: 58 y/o male admitted for appendicitis. Currently p/s appendectomy. Was on clear lx and now upgraded to reg diet w/ reg jose alfredo. Kitchen is aware. Labs and meds reviewed. He is 108% IBW w/ BMI 25.8.Needs are [id number] k/beatriz, 122 g/pro, 2025 ml fluids/ day. No nutritional dx or recommendations at this time. Enc intake as hardeep. Time Spent in Nutritional Counseling and Treatment: 0
--- NOTE | 2019-12-05 14:42 | W.PM.DS.N ---
Date of service: 12/05/19 Time of Service: 14:42 DS: Diagnosis Discharge Diagnosis (1) S/P laparoscopic appendectomy: Status: Acute (2) Hydrocele, bilateral: Status: Acute (3) Chronic cough: Status: Acute (4) Leukocytosis: Status: Acute (5) Elevated serum creatinine: Status: Acute Discharge Plan Disposition Patient Disposition: HOME Condition: Good Discharge Details Chief Complaint: Abd Prob Clinical Impression: Appendicitis Reason For Visit: ACUTE APPENDICITIS Admit Date/Time: 12/04/19 18:53 Admit Provider: Olga Forrest Attending Provider: Olga Forrest Primary Care Provider: Harpal Damian ED Provider: Elijah Mckoy Hospital Course Hospital Course: Mr. Kemp is a pleasant 58 year old male who was seen in the ER with abdominal pain. CT scan showed Acute appendicitis. CT of the chest showed mild emphasema and some scarring on the left lung (he has a history of an injury to his left lung). He underwent a Laparoscopic appendectomy on 12/04/19. He did well overnight. He has eaten a diet and has been up and walking. he is only taking Ibuprofen and Tylenol for pain. He has bilateral hydrocele and Dr. Flowers was nice enough to see him for consultation. He will follow up With Dr. Flowers after following up with Dr. Pandya of pulmonology. Home Meds and New Rx's Prescriptions: New acetaminophen [Tylenol] 325 mg Tablet 650 mg PO Q6H PRN PRN (Reason: Pain) Qty: 30 RF: 0 ibuprofen 200 mg capsule 600 mg PO Q6H PRNQty: 30 RF: 0 Continued multivitamin [Multiple Vitamins] tablet 1 tab PO DAILY RF: 0 Discharge Instructions Instructions: Laparoscopic Appendectomy (GEN) Additional Instructions: Activity at Home after surgery: 1. Make sure you walk outside at least 4 times per day 2. You should be able to climb a flight of stairs 3. No driving while in pain or taking pain medications 4. No strenuous activity or heavy lifting for 2 weeks (laparoscopic surgery) Diet, Nutrition, & wound healin. Avoid alcohol until after you are recovered from your surgery 2. Make sure to eat plenty of lean protein (meat, fish, eggs, cottage cheese, beans) 3. Eat a variety of fruits and vegetables. Eat plenty of high fiber foods to avoid constipation. 4. Drink plenty of liquids to stay hydrated and avoid constipation Pain Medications: 1. Tylenol 650 mg every 6 hours as needed for pain and Ibuprofen 600 mg every 6 hours prn pain 2. If a narcotic has been prescribed take as directed only for breakthrough pain For Constipation: 1. Take Milk of Magnesia or MiraLax as needed for constipation Other: 1. You may shower daily. Do not scrub the incisions 2. Do not soak the incisions for 1 week 3. You may alternate ice and heat as needed for pain and swelling Wound Care: 1. Keep the incisions clean and dry Please call our office if you develop: 1. Fevers >101.5 2. Nausea or Vomiting 3. Worsening pain 4. Redness and thick discharge from the wounds If after hours please call the Hospital at and ask to speak to the on-call surgeon Referrals: Marianna Sanchez MD [ NON-[facility] STAFF PHYSICIAN] - (referral sent from the office. They will call patient with appointment) Olga Forrest MD [ [facility] STAFF PHYSICIAN] - 12/15/19 8:30 am Activity:: No lifting, pulling or pushing >20 lb x 2 weeks Equipment/Supplies:: No Equipment Needed Diet:: As Tolerated Discharge Orders Discharge Orders: Discharge Order (Routine); Ordered 12/05/19 Ordered By: Olga Forrest DS: Summary Status at Discharge Functional status at discharge: independent ambulation Overall status at discharge: patient is back to baseline Mental Status: mental status grossly normal Speech and Movement: speech and movement normal Mood: congruent mood Affect: normal affect Exam Resp Effort & Inspection: normal respiratory effort Auscultation: clear to auscultation bilaterally Cardio Rate: regular rate Rhythm: regular rhythm GI Palpation: soft and tender (appropriate tenderness ariund the incisions) Auscultation: normal bowel sounds Psych Mental Status: mental status grossly normal Speech and Movement: speech and movement normal Mood: congruent mood Affect: normal affect DS: Data Vitals/I&O Vitals and I&O: Vital Signs Temperature 98.2 F 12/05/19 07:30 Temperature Source Tympanic 12/05/19 07:30 Pulse 67 12/05/19 07:30 Pulse Rhythm Regular 12/05/19 08:49 Pulse 91 H 12/04/19 19:20 Respiratory Rate 19 12/05/19 07:30 Respiratory Effort Non-Labored 12/05/19 08:49 Respiratory Depth Normal 12/05/19 08:49 Respiratory Pattern Normal 12/05/19 08:49 Blood Pressure 96/60 L 12/05/19 07:30 Blood Pressure Mean 71 12/04/19 19:17 Blood Pressure Position Sitting 12/04/19 15:01 Pulse Oximetry 97 12/05/19 07:30 Respiratory End-tidal CO2 12/04/19 21:11 Oxygen Delivery Method Room Air 12/05/19 07:30 Oxygen Flow Rate 0 12/05/19 07:30 Pain Level 2 12/05/19 06:09 Intake & Output 12/04/19 12/05/19 12/05/19 23:59 11:59 23:59 Intake Total 3261.25 / 3261.25 1999.583 / 2539.583 540 / 2539.583 Output Total 250 / 250 450 / 450 Balance 3011.25 / 3011.25 1549.583 / 2089.583 540 / 2089.583 Weight 180 lb 0.013 oz 180 lb 0.013 oz Intake: IV 3261.25 / 3261.25 1189.583 / 1239.583 50 / 1239.583 Oral 810 / 1300 490 / 1300 Output: Urine 250 / 250 450 / 450 Other: Urine Color Light Kelly Straw Urine Appearance Clear Clear Stool Size Moderate Stool Characteristics Formed Emesis Description None Voiding Methods Urinal Data Completed and Pending Labs on day of discharge: Labs from last 24 hours 12/05/19 12/05/19 12/04/19 07:20 07:20 18:20 WBC 12.54 H D RBC 3.68 L Hgb 12.0 L D Hct 35.1 L D MCV 95.4 H MCH 32.6 MCHC 34.2 RDW 13.1 Plt Count 182 MPV 10.1 Immature Gran % 0.0 Neutrophils % 73.0 Band Neutrophils % 9.0 Lymphocytes % 6.0 Atypical Lymphs % 2 Monocytes % 7.0 Eosinophils % 2.0 Basophils % 1.0 Metamyelocytes % 1.0 Absolute Neutrophils 10.28 H Absolute Lymphocytes 1.00 L Absolute Monocytes 0.88 H Absolute Eosinophils 0.25 Absolute Basophils 0.13 Differential Comment Manual differential RBC Morphology Normal Sodium 139 Potassium 3.9 Chloride 106 Carbon Dioxide 25.6 Anion Gap 7.4 BUN 19 H Creatinine 1.54 H Estimated GFR/1.73 m2 46.47 Glucose 117 H Lactate Calcium 7.7 L Total Bilirubin AST ALT Alkaline Phosphatase Troponin I Total Protein Albumin Lipase Urine Color Dark yellow Urine Clarity Clear Urine pH 5.5 Ur Specific [place] <= 1.005 Urine Protein 30 H Urine Ketones Negative Urine Blood Trace-intact H Urine Nitrite Negative Urine Bilirubin Negative Urine Urobilinogen 0.2 Ur Leukocyte Esterase Negative Urine RBC 10-20 H Urine WBC 20-50 H Ur Epithelial Cells Negative Urine Crystals Negative Urine Bacteria Moderate Urine Casts 20-50 coarsegranular Urine Mucus Negative Ur Culture Indicated? Yes Urine Glucose Negative COVID-19 PCR Nasopharyn COVID-19 PCR Ref Test Perform Site 12/04/19 12/04/19 12/04/19 17:45 15:30 15:30 WBC 1.80 L* RBC 4.82 Hgb 15.8 Hct 44.7 MCV 92.7 MCH 32.8 MCHC 35.3 RDW 12.6 Plt Count 233 MPV 10.1 Immature Gran % See Differential Neutrophils % 66.0 Band Neutrophils % 26.0 Lymphocytes % 6.0 Atypical Lymphs % Monocytes % 0.0 Eosinophils % 0.0 Basophils % 0.0 Metamyelocytes % 2.0 Absolute Neutrophils 1.66 Absolute Lymphocytes 0.11 L Absolute Monocytes 0.00 L Absolute Eosinophils 0.00 Absolute Basophils 0.00 Differential Comment Manual differential RBC Morphology Normal Sodium Potassium Chloride Carbon Dioxide Anion Gap BUN Creatinine Estimated GFR/1.73 m2 Glucose Lactate Calcium Total Bilirubin AST ALT Alkaline Phosphatase Troponin I < 0.05 Total Protein Albumin Lipase Urine Color Urine Clarity Urine pH Ur Specific [place] Urine Protein Urine Ketones Urine Blood Urine Nitrite Urine Bilirubin Urine Urobilinogen Ur Leukocyte Esterase Urine RBC Urine WBC Ur Epithelial Cells Urine Crystals Urine Bacteria Urine Casts Urine Mucus Ur Culture Indicated? Urine Glucose COVID-19 PCR Negative Nasopharyn COVID-19 PCR Not Applicable Ref Test Perform Site [facility] lab 12/04/19 12/04/19 15:30 15:30 WBC RBC Hgb Hct MCV MCH MCHC RDW Plt Count MPV Immature Gran % Neutrophils % Band Neutrophils % Lymphocytes % Atypical Lymphs % Monocytes % Eosinophils % Basophils % Metamyelocytes % Absolute Neutrophils Absolute Lymphocytes Absolute Monocytes Absolute Eosinophils Absolute Basophils Differential Comment RBC Morphology Sodium 135 L Potassium 3.8 Chloride 100 Carbon Dioxide 24.3 Anion Gap 10.7 BUN 15 Creatinine 1.60 H Estimated GFR/1.73 m2 44.46 Glucose 136 H Lactate 3.1 H* Calcium 9.4 Total Bilirubin 1.9 H AST 19 ALT 29 Alkaline Phosphatase 84 Troponin I Total Protein 7.6 Albumin 3.9 Lipase 87 Urine Color Urine Clarity Urine pH Ur Specific [place] Urine Protein Urine Ketones Urine Blood Urine Nitrite Urine Bilirubin Urine Urobilinogen Ur Leukocyte Esterase Urine RBC Urine WBC Ur Epithelial Cells Urine Crystals Urine Bacteria Urine Casts Urine Mucus Ur Culture Indicated? Urine Glucose COVID-19 PCR Nasopharyn COVID-19 PCR Ref Test Perform Site 12/04/19 16:15 Blood Blood Culture - Pending 12/04/19 15:30 Blood Blood Culture - Pending Preliminary micro results at discharge 12/04/19 18:20 Urine Culture - Preliminary Urine - Reflex from Ua 12/04/19 16:15 Blood Culture - Pending Blood 12/04/19 15:30 Blood Culture - Pending Blood [facility] Medical History (Updated 12/05/19 @ 10:58 by Olga Forrest MD) Alcohol intake above recommended sensible limits (Resolved) Carpal tunnel syndrome (Resolved) right Chest pain (Inactive 07/01/02) Closed fracture of carpal bone (Inactive) Closed fracture of nasal bones (Inactive) Dermoid cyst of left lower extremity (Resolved 02/15/17) Essential hypertension (Inactive) History of palpitations (Resolved) see holter of 03/2019 Left hydrocele (Resolved 08/21/16) Palpitations (Resolved) Pathological fracture of vertebra with routine healing (Inactive) Raynaud's syndrome (Resolved) Sciatica (Resolved) Shoulder pain (Resolved) right Tobacco use disorder (Resolved) chews Tubular adenoma of colon (Resolved 10/21/16) and hyperplastic polyps Unilateral inguinal hernia (Resolved) right Surgical History (Updated 12/05/19 @ 10:51 by Olga Forrest MD) Clavicle fracture (Acute) Colonoscopy - IV Sedation (10/21/16) History of nasal surgery (Acute) KNEE REPAIR LEFT Family History Mother No problems noted. Father Essential hypertension Stroke Sister No problems noted. Brother No problems noted. Brother No problems noted. Grandfather No problems noted. Social History Smoking/Tobacco Use Status: Former Tobacco Use Alcohol Intake: current Alcohol Intake frequency: 3 or more drinks per day Alcohol type: beer Drug use: Rarely Substance use type: marijuana Do you feel safe at home: Yes
--- NOTE | 2019-12-05 15:14 | W.UROLOGYCON ---
Date of service: 12/05/19 Time of Service: 15:14 Assessment and Plan Assessment and plan (1) Scrotal masses: Status: Acute Assessment and plan: The masses appear cystic in nature rather than solid. While fluid can recollect after a hydrocelectomy, since the hydrocele sac is destroyed during the procedure, the fluid collection is not contained within a sac. The fluid may be within a spermatocele sac or taking up the space left by treating the hydrocele. In any event, the fluid collection is benign. We certainly could treat it surgically if it was bothersome enough. Right now, the patient is more concerned about a breathing issue/chronic cough. He has been referred to a meal packer. Once his evaluation is completed, he promises to call my office to arrange a follow-up. History of Present Illness History of Present Illness Chief Complaint: Scrotal mass Narrative: This is a 58-year-old gentleman who was previously seen for a left hydrocele. He underwent left hydrocelectomy about 3 years ago. Shortly after the procedure, he developed persistent bilateral scrotal swelling. He tells me there is not much discomfort associated with the swelling until recently. That is when he developed acute appendicitis. He noticed some right sided scrotal discomfort along with the onset of his appendicitis symptoms. After his appendectomy, the right sided scrotal discomfort improved. He is hoping to go home from the hospital today. He had a scrotal ultrasound and I have been asked to see him regarding the scrotal masses. Review of Systems Constitutional Constitutional: Denies chills and Denies fever(s) Cardiovascular Cardiovascular: Denies chest pain and Denies irregular heart rhythm Respiratory Respiratory: Reports cough and Denies hemoptysis Gastrointestinal Gastrointestinal: Reports abdominal pain and Denies vomiting Hematologic/Lymphatic Hematologic/Lymphatic: Denies easy bleeding and Denies easy bruising COUNTS INCLUDE 234 BEDS AT THE [facility] Medical History (Updated 12/05/19 @ 15:23 by Armando Flowers MD) Alcohol intake above recommended sensible limits (Resolved) Carpal tunnel syndrome (Resolved) right Chest pain (Inactive 07/01/02) Closed fracture of carpal bone (Inactive) Closed fracture of nasal bones (Inactive) Dermoid cyst of left lower extremity (Resolved 02/15/17) Essential hypertension (Inactive) History of palpitations (Resolved) see holter of 03/2019 Left hydrocele (Resolved 08/21/16) Palpitations (Resolved) Pathological fracture of vertebra with routine healing (Inactive) Raynaud's syndrome (Resolved) Sciatica (Resolved) Scrotal masses (Acute) Shoulder pain (Resolved) right Tobacco use disorder (Resolved) chews Tubular adenoma of colon (Resolved 10/21/16) and hyperplastic polyps Unilateral inguinal hernia (Resolved) right Surgical History (Updated 12/05/19 @ 10:51 by Olga Forrest MD) Clavicle fracture (Acute) Colonoscopy - IV Sedation (10/21/16) History of nasal surgery (Acute) KNEE REPAIR LEFT Family History Mother No problems noted. Father Essential hypertension Stroke Sister No problems noted. Brother No problems noted. Brother No problems noted. Grandfather No problems noted. Social History Smoking/Tobacco Use Status: Former Tobacco Use Alcohol Intake: current Alcohol Intake frequency: 3 or more drinks per day Alcohol type: beer Drug use: Rarely Substance use type: marijuana Do you feel safe at home: Yes Exam Narrative Exam Narrative: He does not appear septic or toxic His vital signs are documented elsewhere The scrotum is diffusely enlarged bilaterally. There is no overlying erythema or ecchymosis. The right hemiscrotum is softer than the left which seems much more firm. There is no tenderness on palpation. I am unable to delineate the testes from the remainder of the mass. I reviewed a scrotal ultrasound on the PACS system. There are multicystic lesions bilaterally with fairly normal-appearing testes. There is an intra-testicular cyst on the left side. Results Last Vital Signs Temp 36.8 C 12/05/19 07:30 Pulse 67 12/05/19 07:30 Resp 19 12/05/19 07:30 BP 96/60 L 12/05/19 07:30 Pulse Ox 97 12/05/19 07:30 Labs Result diagrams: 12/05/19 07:20 12/05/19 07:20 Labs: Laboratory Results - last 24 hr 12/04/19 12/04/19 12/04/19 15:30 15:30 15:30 WBC 1.80 L* RBC 4.82 Hgb 15.8 Hct 44.7 MCV 92.7 MCH 32.8 MCHC 35.3 RDW 12.6 Plt Count 233 MPV 10.1 Immature Gran % See Differential Neutrophils % 66.0 Band Neutrophils % 26.0 Lymphocytes % 6.0 Atypical Lymphs % Monocytes % 0.0 Eosinophils % 0.0 Basophils % 0.0 Metamyelocytes % 2.0 Absolute Neutrophils 1.66 Absolute Lymphocytes 0.11 L Absolute Monocytes 0.00 L Absolute Eosinophils 0.00 Absolute Basophils 0.00 Differential Comment Manual differential RBC Morphology Normal Sodium 135 L Potassium 3.8 Chloride 100 Carbon Dioxide 24.3 Anion Gap 10.7 BUN 15 Creatinine 1.60 H Estimated GFR/1.73 m2 44.46 Glucose 136 H Lactate 3.1 H* Calcium 9.4 Total Bilirubin 1.9 H AST 19 ALT 29 Alkaline Phosphatase 84 Troponin I Total Protein 7.6 Albumin 3.9 Lipase 87 Urine Color Urine Clarity Urine pH Ur Specific [place] Urine Protein Urine Ketones Urine Blood Urine Nitrite Urine Bilirubin Urine Urobilinogen Ur Leukocyte Esterase Urine RBC Urine WBC Ur Epithelial Cells Urine Crystals Urine Bacteria Urine Casts Urine Mucus Ur Culture Indicated? Urine Glucose COVID-19 PCR Nasopharyn COVID-19 PCR Ref Test Perform Site 12/04/19 12/04/19 12/04/19 15:30 17:45 18:20 WBC RBC Hgb Hct MCV MCH MCHC RDW Plt Count MPV Immature Gran % Neutrophils % Band Neutrophils % Lymphocytes % Atypical Lymphs % Monocytes % Eosinophils % Basophils % Metamyelocytes % Absolute Neutrophils Absolute Lymphocytes Absolute Monocytes Absolute Eosinophils Absolute Basophils Differential Comment RBC Morphology Sodium Potassium Chloride Carbon Dioxide Anion Gap BUN Creatinine Estimated GFR/1.73 m2 Glucose Lactate Calcium Total Bilirubin AST ALT Alkaline Phosphatase Troponin I < 0.05 Total Protein Albumin Lipase Urine Color Dark yellow Urine Clarity Clear Urine pH 5.5 Ur Specific [place] <= 1.005 Urine Protein 30 H Urine Ketones Negative Urine Blood Trace-intact H Urine Nitrite Negative Urine Bilirubin Negative Urine Urobilinogen 0.2 Ur Leukocyte Esterase Negative Urine RBC 10-20 H Urine WBC 20-50 H Ur Epithelial Cells Negative Urine Crystals Negative Urine Bacteria Moderate Urine Casts 20-50 coarsegranular Urine Mucus Negative Ur Culture Indicated? Yes Urine Glucose Negative COVID-19 PCR Negative Nasopharyn COVID-19 PCR Not Applicable Ref Test Perform Site [facility] hospital lab 12/05/19 12/05/19 07:20 07:20 WBC 12.54 H D RBC 3.68 L Hgb 12.0 L D Hct 35.1 L D MCV 95.4 H MCH 32.6 MCHC 34.2 RDW 13.1 Plt Count 182 MPV 10.1 Immature Gran % 0.0 Neutrophils % 73.0 Band Neutrophils % 9.0 Lymphocytes % 6.0 Atypical Lymphs % 2 Monocytes % 7.0 Eosinophils % 2.0 Basophils % 1.0 Metamyelocytes % 1.0 Absolute Neutrophils 10.28 H Absolute Lymphocytes 1.00 L Absolute Monocytes 0.88 H Absolute Eosinophils 0.25 Absolute Basophils 0.13 Differential Comment Manual differential RBC Morphology Normal Sodium 139 Potassium 3.9 Chloride 106 Carbon Dioxide 25.6 Anion Gap 7.4 BUN 19 H Creatinine 1.54 H Estimated GFR/1.73 m2 46.47 Glucose 117 H Lactate Calcium 7.7 L Total Bilirubin AST ALT Alkaline Phosphatase Troponin I Total Protein Albumin Lipase Urine Color Urine Clarity Urine pH Ur Specific [place] Urine Protein Urine Ketones Urine Blood Urine Nitrite Urine Bilirubin Urine Urobilinogen Ur Leukocyte Esterase Urine RBC Urine WBC Ur Epithelial Cells Urine Crystals Urine Bacteria Urine Casts Urine Mucus Ur Culture Indicated? Urine Glucose COVID-19 PCR Nasopharyn COVID-19 PCR Ref Test Perform Site
--- NOTE | 2019-12-05 15:30 | CHAPLAIN ---
Tai was resting in bed when I visited and expecting to be discharged later today. I explain my role and offered support.
--- NOTE | 2019-12-07 08:40 | W.ED.FU ---
I received call from Dr. Ribeiro regarding positive blood culture. I reviewed chart: Patient was admitted to surgical service for acute appendicitis. Patient was subsequently discharged postoperatively. I contacted on-call general surgeon, Dr. Andino and relayed culture results to her and discussed ED care that was provided. She notes she will follow-up with the patient.
--- NOTE | 2019-12-08 18:32 | PGE_ITS ---
Date of Service Date of service: 12/08/19 Time of Service: 18:33 Subjective Subjective Interval history since last seen: pt had appendectomy on 12/03. Pt had blood cultures done in the ED. one of the anerobic bottles has grown out bacteriodes and another is possible for Heamophillus. Pt had no fever at time of d/c. He did go home on augmentin. I did d/w dr diaz. Clinically pt does not exhibit signs of requiring further abx therapy. THis is most likely contaminant. Objective Objective Clinical Data: Vital Signs Temperature 36.8 C 12/05/19 07:30 Temperature Source Tympanic 12/05/19 07:30 Pulse 67 12/05/19 07:30 Pulse Rhythm Regular 12/05/19 08:49 Pulse 91 H 12/04/19 19:20 Respiratory Rate 19 12/05/19 07:30 Respiratory Effort Non-Labored 12/05/19 08:49 Respiratory Depth Normal 12/05/19 08:49 Respiratory Pattern Normal 12/05/19 08:49 Blood Pressure 96/60 L 12/05/19 07:30 Blood Pressure Mean 71 12/04/19 19:17 Blood Pressure Position Sitting 12/04/19 15:01 Pulse Oximetry 97 12/05/19 07:30 Respiratory End-tidal CO2 21 12/04/19 21:11 Oxygen Delivery Method Room Air 12/05/19 07:30 Oxygen Flow Rate 0 12/05/19 07:30 Pain Level 2 12/05/19 06:09 Laboratory Results WBC 12.54 k/cumm (4.4-10.8) H D 12/05/19 07:20 RBC 3.68 m/cumm (4.50-6.00) L 12/05/19 07:20 Hgb 12.0 g/dL (13.5-17.5) L D 12/05/19 07:20 Hct 35.1 % (40.0-50.0) L D 12/05/19 07:20 MCV 95.4 fL (80-95) H 12/05/19 07:20 MCH 32.6 pg (27.0-33.0) 12/05/19 07:20 MCHC 34.2 g/dL (32.0-36.0) 12/05/19 07:20 RDW 13.1 % (11.8-14.1) 12/05/19 07:20 Plt Count 182 x1000/uL (130-400) 12/05/19 07:20 MPV 10.1 fL (8.0-11.0) 12/05/19 07:20 Immature Gran % 0.0 % 12/05/19 07:20 Neutrophils % 73.0 12/05/19 07:20 Band Neutrophils % 9.0 % 12/05/19 07:20 Lymphocytes % 6.0 12/05/19 07:20 Atypical Lymphs % 2 12/05/19 07:20 Monocytes % 7.0 12/05/19 07:20 Eosinophils % 2.0 12/05/19 07:20 Basophils % 1.0 12/05/19 07:20 Metamyelocytes % 1.0 % 12/05/19 07:20 Absolute Neutrophils 10.28 k/cumm (1.2-6.7) H 12/05/19 07:20 Absolute Lymphocytes 1.00 k/cumm (1.2-3.4) L 12/05/19 07:20 Absolute Monocytes 0.88 k/cumm (0.11-0.7) H 12/05/19 07:20 Absolute Eosinophils 0.25 k/cumm (0.0-0.7) 12/05/19 07:20 Absolute Basophils 0.13 k/cumm (0.0-0.2) 12/05/19 07:20 Differential Comment Manual differential 12/05/19 07:20 RBC Morphology Normal 12/05/19 07:20 Sodium 139 mmol/L (136-145) 12/05/19 07:20 Potassium 3.9 mmol/L (3.5-5.1) 12/05/19 07:20 Chloride 106 mmol/L (98-107) 12/05/19 07:20 Carbon Dioxide 25.6 mmol/L (21.0-32.0) 12/05/19 07:20 Anion Gap 7.4 mmol/L (3-11) 12/05/19 07:20 BUN 19 mg/dL (7-18) H 12/05/19 07:20 Creatinine 1.54 mg/dL (0.70-1.30) H 12/05/19 07:20 Estimated GFR/1.73 m2 46.47 (mL/min/1.73m2) 12/05/19 07:20 Glucose 117 mg/dL (74-106) H 12/05/19 07:20 Lactate 3.1 mmol/L (0.6-1.4) H* 12/04/19 15:30 Calcium 7.7 mg/dL (8.5-10.1) L 12/05/19 07:20 Total Bilirubin 1.9 mg/dL (0.2-1.0) H 12/04/19 15:30 AST 19 U/L (15-37) 12/04/19 15:30 ALT 29 U/L (16-63) 12/04/19 15:30 Alkaline Phosphatase 84 U/L (46-116) 12/04/19 15:30 Troponin I < 0.05 ng/Ml (<0.06) 12/04/19 15:30 Total Protein 7.6 g/dL (6.4-8.2) 12/04/19 15:30 Albumin 3.9 g/dL (3.4-5.0) 12/04/19 15:30 Lipase 87 U/L (73-393) 12/04/19 15:30 Urine Color Dark yellow (Yellow) 12/04/19 18:20 Urine Clarity Clear (Clear) 12/04/19 18:20 Urine pH 5.5 (5-8) 12/04/19 18:20 Ur Specific [place] <= 1.005 (1.005-1.025) 12/04/19 18:20 Urine Protein 30 mg/dL (Negative) H 12/04/19 18:20 Urine Ketones Negative mg/dL (Negative) 12/04/19 18:20 Urine Blood Trace-intact (Negative) H 12/04/19 18:20 Urine Nitrite Negative (Negative) 12/04/19 18:20 Urine Bilirubin Negative (Negative) 12/04/19 18:20 Urine Urobilinogen 0.2 EU/dL (Up TO 0.2) 12/04/19 18:20 Ur Leukocyte Esterase Negative (Negative) 12/04/19 18:20 Urine RBC 10-20 HPF (0-2) H 12/04/19 18:20 Urine WBC 20-50 HPF (0-5) H 12/04/19 18:20 Ur Epithelial Cells Negative HPF (Negative) 12/04/19 18:20 Urine Crystals Negative HPF (Negative) 12/04/19 18:20 Urine Bacteria Moderate HPF (Negative) 12/04/19 18:20 Urine Casts 20-50 coarsegranular LPF (Negative) 12/04/19 18:20 Urine Mucus Negative (Negative) 12/04/19 18:20 Ur Culture Indicated? Yes 12/04/19 18:20 Urine Glucose Negative mg/dL (Negative) 12/04/19 18:20 COVID-19 PCR Negative (Negative) 12/04/19 17:45 Nasopharyn COVID-19 PCR Not Applicable 12/04/19 17:45 Ref Test Perform Site [facility] hospital lab 12/04/19 17:45
== END 2019-12-05 15:25 | disposition home or self-care (01) | DRG 343 ==
LOC: ER 19:42 → MS 22:04 → DSU 12-05 09:57 → MS 12-05 09:57
PROVIDERS: Physician Assistant; Admitting Provider Surgery; Emergency Provider Physician Assistant; PCP Emergency Medicine; Visit Provider Surgery
PROC: 0DTJ4ZZ Resection of Appendix, Percutaneous Endoscopic Approach (ICD-10-PCS; CPT 44970; principal; 2019-12-04 19:15)
PROC: 0DTJ4ZZ Resection of Appendix, Percutaneous Endoscopic Approach (ICD-10-PCS; CPT 49650; 2019-12-04 19:15)
DX: K35.891 Other acute appendicitis without perforation, with gangrene (principal); K35.33 Acute appendicitis with perforation, localized peritonitis, and gangrene, with abscess; N50.89 Other specified disorders of the male genital organs; J43.9 Emphysema, unspecified; X58.XXXS Exposure to other specified factors, sequela; Z11.59 Encounter for screening for other viral diseases; I10 Essential (primary) hypertension; R05 Cough; R79.89 Other specified abnormal findings of blood chemistry
CPT/HCPCS: 44970; 36415; 71275; 74177; 80048; 80053; 83690; 87040; 87077; 93005; 96361; 96365; 96375; 99252; 99285; NC; U0003; 70460; 76870; 81003; 81015; 83605; 84484; 85025; 87086; 88304; 93010; J1885; J1941; J2001; J2370; J2405; J2543; J2704; J3010; J3490; J7613

== ENCOUNTER 2019-12-29 02:14 | Outpatient (CLI) | payer BC, SELFPAY ==
--- NOTE | 2019-12-29 09:45 | DI.RAD_ITS ---
EXAM: XR LUMBAR SPINE COMPLETE CLINICAL HISTORY: Low back and left hip pain.m25.552,m54.9. TECHNIQUE: 2D digital imaging was performed. COMPARISON: No exams were available for comparison FINDINGS: BONES: No fracture or destructive lesion. Vertebral bodies are unremarkable. Facet degenerative siegel es are seen greater on the right side at L4-5 and L5-S1.. DISKS: The L1-2 disc space is well maintained. There is mild narrowing of the L2-3 disc space. Ther e is moderate narrowing of the L3-4 disc space with endplate osteophytes. There is severe narrowing of the L4-5 disc space with moderate osteophytes. There is severe narrowing of the L5-S1 disc space with small endplate osteophytes. ALIGNMENT: Straightening of the normal lumbar lordosis. No scoliosis, spondylolysis or spondylo list hesis.. SOFT TISSUE: Normal. IMPRESSION: Degenerative disc changes and facet degenerative changes, greatest at L4-5 and L5-S1. DATA REPOSITORY: RADIATION DOSE DELIVERED:
--- NOTE | 2019-12-29 09:48 | DI.RAD_ITS ---
EXAM: XR HIP LT COMPLETE AP PELVIS INDICATION: Low back and left hip pain,m25.552,m54.9. COMPARISON: No exams were available for comparison TECHNIQUE: 2D digital imaging was performed. FINDINGS: The hip joint spaces are well maintained. There is minimal bilateral acetabular spurring. SI joint s show minimal spurring inferiorly. No joint space or soft tissue calcifications are seen. IMPRESSION: Minimal degenerative changes. DATA REPOSITORY: RADIATION DOSE DELIVERED:
== END 2019-12-29 02:34 ==
PROVIDERS: PCP Emergency Medicine; Visit Provider Emergency Medicine
DX: M25.552 Pain in left hip (principal); M54.5 Low back pain; M53.3 Sacrococcygeal disorders, not elsewhere classified; M16.12 Unilateral primary osteoarthritis, left hip; M47.817 Spondylosis without myelopathy or radiculopathy, lumbosacral region; M51.37 Other intervertebral disc degeneration, lumbosacral region
CPT/HCPCS: 72110; 73502

== ENCOUNTER 2020-04-19 03:45 | Outpatient (CLI) | payer BC, SELFPAY ==
--- NOTE | 2020-04-19 15:40 | DI.MRI_ITS ---
EXAM: MR LUMBAR SPINE WO CLINICAL HISTORY: persistent sciatica,M54.32, BACK PAIN. TECHNIQUE: Multiplanar multisequence MRI was performed. COMPARISON: No exams were available for comparison FINDINGS: MR examination of the lumbosacral spine was performed according to the usual protocol. There are Per i discal vertebral signal changes particularly at the L4-5 and L5-S1 levels consistent with disc dege neration. There is marked loss disc height at L3-4, L4-5, and L5-S1. No significant findings at T12-L1. The conus medullaris appears intact. There is a probable right-sided disc herniation which appears to arise from the L1-2 disc and which p rojects superiorly from the disc level in the right lateral aspect of the spinal canal. Other etiologies are not entirely excluded as a cause of this finding including tumor. This significantly deforms the thecal sac on the right at this level. The right neural foramen is m ildly narrowed at this site. Left neural foramen and central spinal canal show no bony abnormality. At L2-3, there is a prominent disc bulge and narrowing of the lateral recesses of the spinal canal bi laterally. There is moderate facet hypertrophy. There is borderline central canal spinal stenosis. No neural foraminal stenosis seen. At L3-4, there is moderate disc bulge with no significant disc herniation. Central spinal canal and neural foramina appear well maintained. At L4-5, there is a moderate disc bulge without disc herniation. Central canal appears intact. Ques tion mild bilateral neural foraminal narrowing. At L5-S1 there is a prominent disc bulge without disc herniation. Neural foramina and central spinal canal appear well maintained. IMPRESSION: Intrathecal abnormality occupying a significant portion of the right anterior aspect of the spinal ca nal just above the L 1 2 disc level. The findings are most suggestive of a superiorly projecting dis c herniation. However other etiologies including neoplasm are not excluded. Correlation with contra st enhanced MRI recommended. Borderline central canal stenosis secondary to prominent bulge and facet hypertrophy at the L 2 3 lev el. DATA REPOSITORY:
== END 2020-04-19 04:05 ==
PROVIDERS: PCP Emergency Medicine; Visit Provider Emergency Medicine
DX: M54.32 Sciatica, left side (principal); M54.9 Dorsalgia, unspecified
CPT/HCPCS: 72148

== ENCOUNTER 2020-05-01 05:32 | Outpatient (CLI) | payer BC, SELFPAY | END 2020-05-01 05:52 | PROVIDERS: PCP Emergency Medicine; Visit Provider Emergency Medicine | DX: M54.5 Low back pain (principal); R93.7 Abnormal findings on diagnostic imaging of other parts of musculoskeletal system; Z13.89 Encounter for screening for other disorder | CPT/HCPCS: 36415; 82565 ==

== ENCOUNTER 2020-05-08 00:51 | Outpatient (CLI) | payer BC, SELFPAY ==
--- NOTE | 2020-05-08 09:15 | DI.MRI_ITS ---
EXAM: MR LUMBAR SPINE W CLINICAL HISTORY: Sciatica. Abnormal plain MRI R93.7 ABNORMAL FINDINGS. TECHNIQUE: Multiplanar multisequence MRI was performed. COMPARISON: MR MR LUMBAR SPINE WO from 04/19/2020 FINDINGS: Contrast enhanced lumbar spine MRI was performed post contrast T1 weighted axial and sagittal imaging . The previously described suspected L1-2 disc herniation projected superior to the disc has post co ntrast findings consistent with an extruded disc free fragment, with no enhancement centrally and mil d peripheral enhancement consistent with mild associated inflammation. Note is again made of alyssa smooth of the adjacent exiting right L1 nerve root. Neoplastic process not absolutely excluded but unlikely on the basis of these findings. IMPRESSION: The findings are supportive of the diagnosis of a free extruded disc fragment in the spinal canal on the right above the L1-2 disc level. Please see above discussion DATA REPOSITORY:
[2020-05-08] MEDS: Gadoterate meglumine 20 ML VIAL 17 ML IVP (12:26)
== END 2020-05-08 01:11 ==
PROVIDERS: PCP Emergency Medicine; Visit Provider Emergency Medicine
DX: R93.7 Abnormal findings on diagnostic imaging of other parts of musculoskeletal system (principal); M54.30 Sciatica, unspecified side
CPT/HCPCS: 72149

== ENCOUNTER 2020-06-25 01:49 | Outpatient (CLI) | payer BC, SELFPAY ==
--- NOTE | 2020-06-25 07:15 | DI.US_ITS ---
EXAM: US SCROTUM CLINICAL HISTORY: moniitor scrotal mass,n50.89. TECHNIQUE: Scrotal ultrasound performed using grayscale, color-flow and spectral Doppler analysis. COMPARISON: US SCROTUM US from 10/09/2015 FINDINGS: Right testicle: 4.9 x 2.4 x 4 cm Left testicle: 4.3 x 3.2 x 2.8 cm. Echogenicity: Normal. Contour: Smooth. Mass: None seen. 7 millimeter tunica albuginea cyst, stable. Microlithiasis: None. Hydrocele: None. Variocele: None. Hernia: No peristalsing bowel loop identified. Epididymis: Multiple large bilateral spermatoceles. Measurements are difficult to obtain due to larg e size. The combined measurements are over 8 cm bilaterally. The right-sided spermatoceles appear t o have increased when compared with the previous exam. The left side is roughly stable. DOPPLER: Color: Symmetric and uniform, no hyperemia. Duplex: Bilateral testicular arterial waveforms visualized. IMPRESSION: Large bilateral spermatoceles. Stable 7 millimeter left tunica albuginea cyst. DATA REPOSITORY:
== END 2020-06-25 02:09 ==
PROVIDERS: PCP Emergency Medicine; Visit Provider Urology
DX: N43.42 Spermatocele of epididymis, multiple (principal); N44.1 Cyst of tunica albuginea testis
CPT/HCPCS: 76870

== ENCOUNTER 2020-07-11 04:48 | Outpatient (CLI) | payer BC, SELFPAY ==
[2020-07-13 15:59] LABS: COVID-19 RT-PCR Result NEGATIVE (Negative)
== END 2020-07-11 05:08 ==
PROVIDERS: PCP Emergency Medicine; Visit Provider Urology
DX: Z11.59 Encounter for screening for other viral diseases (principal); Z01.818 Encounter for other preprocedural examination
CPT/HCPCS: U0003

== ENCOUNTER 2020-07-15 08:22 | Day surgery (SDC) | payer BC, SELFPAY ==
[2020-07-15 08:45] VITALS: BP 150/93; PULSE 62; RESP 16; TEMP 36.4; O2SAT 97
[2020-07-15] MEDS: Lactated Ringers 1,000 ML 80 ML IV (09:15)
--- NOTE | 2020-07-15 09:32 | HPE_ITS ---
Date of service: 07/15/20 Time of Service: 09:32 Assessment and Plan Assessment and plan (1) Scrotal Mass: Status: Acute Assessment and plan: For bilateral spermatocelectomy History of Present Illness History of Present Illness Chief Complaint: Bilateral spermatocele Narrative: Chief complaint: Scrotal mass This is a 59-year-old gentleman who had previously undergone a left hydrocelectomy. He has noticed bilateral scrotal swelling which is heavy but is not overly painful. He is wondering if he has recurrence of his hydrocele. On exam and on ultrasound, the masses appear to be spermatoceles. He does not recall any specific trauma to the area. He has no overlying redness or bruising Review of Systems Narrative: No fevers or chills No vision change or dysphasia No diabetes or thyroid No shortness of breath or hemoptysis No chest pain or palpitations No nausea, vomiting, hepatitis, ulcers, jaundice, diarrhea or constipation No seizures, strokes or peripheral neuropathy No bleeding disorders or anemia No gout. Chronic back pain COUNT INCLUDES THE [facility] Medical History Abnormal MRI, lumbar spine Alcohol intake above recommended sensible limits Carpal tunnel syndrome right Chest pain (07/01/02) Chronic cough Closed fracture of carpal bone Closed fracture of nasal bones Dermoid cyst of left lower extremity (02/15/17) Essential hypertension History of palpitations see holter of 03/201907/12/20: Per pt. states that was a long time ago, I haven't had any issues since History of pneumothorax 2011 Hydrocele, bilateral Lumbar disc herniation Palpitations Pathological fracture of vertebra with routine healing Perforated tympanic membrane Raynaud's syndrome Sciatica Scrotal Mass Shoulder pain right Tobacco use disorder chews Tubular adenoma of colon (10/21/16) and hyperplastic polyps Unilateral inguinal hernia right Surgical History (Updated 07/15/20 @ 08:40 by Kerry Segura) Clavicle fracture Colonoscopy - IV Sedation (10/21/16) History of hydrocelectomy History of nasal surgery broken nose KNEE REPAIR LEFT S/P laparoscopic appendectomy (~12/04/19) Family History Mother No problems noted. Father Essential hypertension Stroke Sister No problems noted. Brother No problems noted. Brother No problems noted. Grandfather No problems noted. Social History Smoking/Tobacco Use Status: Current every day Tobacco Type: smokeless tobacco Smokeless tobacco user: chewing tobacco Quit status: not considering quitting Smoking risk assessment performed?: Yes Alcohol Intake: current Alcohol Intake frequency: 3 or more drinks per day Alcohol type: beer Drug use: Rarely Substance use type: marijuana Do you feel safe at home: Yes Do you feel safe in your relationship?: Yes Meds Home Medications and Allergies Home Medications Medication Instructions Recorded Confirmed Type multivitamin 1 tab PO DAILY 10/13/18 07/15/20 History acetaminophen [Tylenol] 650 mg PO Q6H PRN PRN #30 tab 12/05/19 07/15/20 Rx ibuprofen 600 mg PO Q6H PRN #30 cap 12/05/19 07/15/20 Rx cyclobenzaprine 10 mg tablet 10 mg PO TID #21 tab 12/20/19 07/15/20 Rx tramadol 50 mg tablet 50 mg PO QHS PRN #10 tab 12/20/19 07/15/20 Rx naproxen 375 mg tablet 375 mg PO TID PRN #60 tab 04/02/20 07/15/20 Rx [id number] 1 inh INHALATION DAILY 07/12/20 07/15/20 History [Trelegy Ellipta] Allergies Allergy/AdvReac Type Severity Reaction Status Date / Time morphine Allergy Intermediate ITCH Verified 07/15/20 08:38 Exam Const General: cooperative, comfortable and no acute distress Resp Effort & Inspection: normal respiratory effort Auscultation: clear to auscultation bilaterally Cardio Rate: regular rate Rhythm: regular rhythm GI Palpation: soft and no masses Neuro General: patient alert, patient awake and patient oriented x3 Results Last Vital Signs Temp 36.4 C L 07/15/20 08:45 Pulse 62 07/15/20 08:45 Resp 16 07/15/20 08:45 BP 150/93 H 07/15/20 08:45 Pulse Ox 97 07/15/20 08:45 COVID-19 Screening Have you, or household traveled for leisure in last 14 days?: No Had IN PERSON contact w/suspected or confirmed C-19 person: No
[2020-07-15] MEDS: ceFAZolin 1 GM/50 ML BAG IVPB (10:08)
--- NOTE | 2020-07-15 10:42 | SPERMATO_PTH ---
PATIENT: Tai Kemp LOC: [facility] U#:[id number] AGE/SX: 59/M ROOM: RE07/15/[address]: Armando Flowers MD : [id number] BED: DIS: 07/15/2020 SPEC #: [id number] RECD: 07/15/20 12:36 STATUS: [place] REQ #: [id number] BOBBY: 07/15/20 10:[address]: Armando Flowers DEPT: Surgical Specimen RECD BY: An Lucero ENTERED: 07/15/20 12:38 SP TYPE: SPERMATO OTHR DR: Harpal Damian DO Tissues: 1 - SPERMATOCELE Procedures: GROSS AND MICRO LEVEL 3 Comments: [id number]
[2020-07-15] MEDS: Bupivacaine 0.25% Pres-Free 30 ML VIAL (10:59)
[2020-07-15] MEDS: Bacitracin 30 GM TUBE (11:22)
--- NOTE | 2020-07-15 11:25 | W.PM.DSUDISC ---
Discharge Plan Disposition Patient Disposition: HOME Condition: Stable Discharge Details Reason For Visit: bilateral spermatoceles Attending Provider: Armando Flowers Primary Care Provider: Harpal Damian Home Meds and New Rx's Prescriptions: New tramadol 50 mg tablet 50 mg PO Q6H PRN (Reason: pain) Qty: 20 RF: 0 No Action multivitamin [Multiple Vitamins] tablet 1 tab PO DAILY RF: 0 naproxen 375 mg tablet 375 mg PO TID PRN (Reason: pain) Qty: 60 RF: 0 tramadol 50 mg tablet 50 mg PO QHS PRN (Reason: pain) Qty: 10 RF: 0 cyclobenzaprine 10 mg tablet 10 mg PO TID Qty: 21 RF: 0 acetaminophen [Tylenol] 325 mg Tablet 650 mg PO Q6H PRN PRN (Reason: Pain) Qty: 30 RF: 0 ibuprofen 200 mg capsule 600 mg PO Q6H PRNQty: 30 RF: 0 Trelegy Ellipta 100-62.5-25 mcg blister with device 1 inh INHALATION DAILY RF: 0 Discharge Instructions Additional Instructions: Scrotal support and ice packs to scrotum for 48 hours F/U 4 weeks for wound check may remove fluff dressing in 24 hours Remove Dressings/Wound Care:: 24 hours Shower/Bathe:: 24 hours Diet:: As Tolerated Discharge Orders Discharge Orders: Discharge Order (Routine); Ordered 07/15/20 Ordered By: Armando Flowers DS: Diagnosis Discharge Diagnosis (1) Scrotal Mass: Status: Acute
--- NOTE | 2020-07-15 11:31 | W.PM.OP ---
Date of service: 07/15/20 Time of Service: 11:32 Operative Note Operative Note DATE OF PROCEDURE: 07/15/20 PRE-OP DIAGNOSIS: Bilateral spermatoceles POST-OP DIAGNOSIS: same PROCEDURE: Bilateral spermatocelectomy SURGEON: Armando Flowers ANESTHESIA: other (General without intubation) ESTIMATED BLOOD LOSS: 25 PATHOLOGY: other (bilateral spermatoceles) COMPLICATIONS: None Patient was transported to: same day Patient's condition: stable Indications: This is a 59-year-old gentleman who was previously seen for a left hydrocele. The hydrocele was repaired surgically. He now has bilateral scrotal masses which appear to be spermatoceles both clinically and sonographically. The masses are symptomatic so he presents now for bilateral spermatocele ectomy Findings: Multiple large spermatoceles bilaterally Procedure Description: The patient was brought to the operating room on 07/15/2020. After successful induction of general anesthesia without intubation, he was placed in the supine position. His genitalia and perineum were prepped and draped sterilely. A field block was performed with quarter percent Marcaine. A midline scrotal incision was made down the median raphae. The right hemiscrotum was then entered using sharp dissection. The right testis, still within the tunica vaginalis, was then delivered into the incision. The tunica was opened anteriorly and the testis and epididymis were exposed. Multiple cystic structures were attached to the right epididymis. Each of these structures were dissected free using sharp and blunt dissection. Each excised spermatocele was sent to pathology for permanent section. Hemostasis was then obtained with cautery. The tunica vaginalis was reapproximated behind the testis to ensure that a hydrocele would not perform. This was done with 3-0 chromic suture. The testis was delivered back within the right hemiscrotum. The overlying dartos muscle was reapproximated with a segment of running 3-0 chromic. The left hemiscrotum was then entered using sharp and blunt dissection. The left testis was much more scarred from the previous hydrocelectomy. Sharp and blunt dissection was then utilized to come down onto the left epididymis. A very large cystic structure was attached to the epididymis. This large spermatocele was dissected free using sharp and blunt dissection. It was excised off the epididymis sharply. Again, hemostasis was obtained with cautery. The testis was delivered back within the left hemiscrotum and the dartos muscle was closed using a running segment of 3-0 chromic. Prior to delivering each of the testes back within it respective hemiscrotum, a cord block was performed with quarter percent Marcaine without epinephrine. The scrotal skin was then reapproximated using simple interrupted 4-0 chromic sutures. Antibiotic ointment was applied to the incision followed by a fluff dressing and a scrotal support. The patient tolerated this procedure well. There were no complications. He was taken to the day surgery unit in stable condition.
[2020-07-15] MEDS: traMADol 50 MG TAB PO (12:04)
[2020-07-15 12:30] VITALS: BP 133/77; PULSE 56; RESP 16; TEMP 36.3; O2SAT 98
== END 2020-07-15 12:54 | disposition home or self-care (01) ==
PROVIDERS: PCP Emergency Medicine; Visit Provider Urology
PROC: (CPT 54840; principal; 2020-07-15 09:15)
DX: N43.42 Spermatocele of epididymis, multiple (principal); I10 Essential (primary) hypertension; F17.210 Nicotine dependence, cigarettes, uncomplicated; I73.00 Raynaud's syndrome without gangrene
CPT/HCPCS: 54840; NC; 88304; J0690; J1100; J1885; J2001; J2405

== ENCOUNTER 2021-03-16 17:12 | Emergency (ER) | payer BC, SELFPAY ==
[2021-03-16 17:29] VITALS: BP 137/93; PULSE 75; RESP 16; TEMP 37.3; O2SAT 96
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
[2021-03-16 18:40] VITALS: BP 145/96; PULSE 74; RESP 18; TEMP 36.5; O2SAT 96
[2021-03-16] MEDS: Acetaminophen 500 MG TAB 1000 MG PO (18:45)
[2021-03-16] MEDS: oxyCODONE 5 MG TAB PO (19:42)
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
== END 2021-03-16 19:45 | disposition home or self-care (01) ==
PROVIDERS: Emergency Provider Emergency Medicine; PCP Emergency Medicine
DX: S42.001A Fracture of unspecified part of right clavicle, initial encounter for closed fracture (principal); V19.9XXA Pedal cyclist (driver) (passenger) injured in unspecified traffic accident, initial encounter
CPT/HCPCS: 99284; 73000; 73030

== ENCOUNTER 2021-03-18 03:01 | Outpatient (CLI) | payer BC, SELFPAY ==
[2021-03-18 13:18] LABS: Source Nasal/Nares
[2021-03-18 16:28] LABS: COVID-19 PCR Negative (Negative)
== END 2021-03-18 03:02 | disposition home or self-care (01) ==
LOC: LBO 03:01
PROVIDERS: PCP Emergency Medicine; Visit Provider Student in an Organized Health Care Education/Training Program
DX: Z20.822 Contact with and (suspected) exposure to COVID-19 (principal); Z01.818 Encounter for other preprocedural examination
CPT/HCPCS: 87635

== ENCOUNTER 2021-03-18 09:21 | Outpatient (CLI) | payer BC, SELFPAY ==
--- NOTE | 2021-03-18 08:30 | DI.RAD_ITS ---
Exam(s) XR CLAVICLE RT EXAM: XR CLAVICLE RT CLINICAL HISTORY: fracture of right clavicle TECHNIQUE: COMPARISON: CR,XR XR CLAVICLE RT from 03/16/2021 FINDINGS: Two views were obtained. Previous described mid clavicular fracture is again noted with moderate com minution and moderate displacement of the fracture fragments. Alignment appears grossly unchanged co mparison with prior films of March 16. IMPRESSION: RADIATION DOSE DELIVERED: Total DLP
--- NOTE | 2021-03-18 08:30 | DI.RAD_ITS ---
Exam(s) XR CLAVICLE LT EXAM: XR CLAVICLE LT CLINICAL HISTORY: left clavicle pain f/u TECHNIQUE: COMPARISON: CR XR CLAVICLE RT from 03/18/2021 FINDINGS: Two views were obtained and show plate and screw fixation in place in the clavicle. No prior images available for comparison. Alignment appears nearly anatomic. No evidence of acute injury on this li mited series. IMPRESSION: RADIATION DOSE DELIVERED: Total DLP
== END 2021-03-18 09:22 | disposition home or self-care (01) ==
LOC: DIORS 09:21
PROVIDERS: PCP Emergency Medicine; Referring Provider Emergency Medicine; Visit Provider Student in an Organized Health Care Education/Training Program
DX: S42.001D Fracture of unspecified part of right clavicle, subsequent encounter for fracture with routine healing (principal); M25.512 Pain in left shoulder; V18.4XXD Pedal cycle driver injured in noncollision transport accident in traffic accident, subsequent encounter
CPT/HCPCS: 73000

== ENCOUNTER 2021-03-20 06:02 | Day surgery (SDC) | payer BC, SELFPAY ==
[2021-03-20] VITALS (7 sets, daily range): BP systolic 117–142; BP diastolic 73–100; PULSE 53–68; RESP 15–16; TEMP 36–36.8; O2SAT 94–97; BMI 25.9
--- NOTE | 2021-03-20 06:50 | W.ANESPRE ---
General Info Date of Service Date Performed: 03/20/21 Height: 5 ft 9 in Weight: 79.9 kg Body Mass Index (BMI): 25.9 Surgical Procedure: Operation Date: 03/20/21 07:40 Proposed Procedures Side Surgeon p Shoulder ORIF Clavicle Right Tl Gallagher MD Meds Allergies and Home Medications Allergies Allergy/AdvReac Type Severity Reaction Status Date / Time morphine Allergy Intermediate ITCH Verified 03/20/21 06:18 Home Medication Medication Instructions Recorded naproxen 375 mg PO PRN PRN 03/16/21 oxycodone 5 mg PO Q6H PRN #10 tab 03/16/21 acetaminophen 500 mg tablet 500 mg PO Q6H PRN 03/18/21 Current Visit Medications: Current Medications Generic Name Dose Route Start Last Admin Trade Name Freq PRN Reason Stop Dose Admin Ringer's Solution 1,000 mls @ 100 mls/hr 03/20/21 06:00 IV 04/18/21 23:59 INFUSION LITO Cefazolin Sodium 2,000 mg/ 100 mls @ 200 mls/hr 03/20/21 06:00 Sodium Chloride IVPB 03/20/21 16:00 PREOP LITO IV Miscellaneous Supplies 1 each 03/20/21 06:00 Iv Access IV 04/18/21 23:59 DIRECTED LITO Sodium Chloride 0 ml 03/20/21 06:00 Normal Saline Flush 10 Ml Syr IV 04/18/21 23:59 PRN PRN Sodium Chloride 0 ml 03/20/21 06:00 Normal Saline 10 Ml Vial IJ 04/18/21 23:59 DIRECTED PRN Sterile Water 0 ml 03/20/21 06:00 Water,Injection,Sterile 10 Ml Vial IJ 04/18/21 23:59 DIRECTED PRN PFSH Active Problems Active Problems: Problem Status Onset Code Fracture of right clavicle 03/16/21 S42.001A Back pain M54.9 Scrotal Mass N50.89 Perforated tympanic membrane H72.90 S/P laparoscopic appendectomy ~12/04/19 Z90.49 Tubular adenoma of colon 10/21/16 D12.6 Raynaud's syndrome I73.00 Tobacco use disorder F17.200 Sciatica M54.30 Hydrocele, bilateral N43.3 Closed fracture of nasal bones S02.2XXA Closed fracture of carpal bone S62.109A Essential hypertension I10 Lumbar disc herniation M51.26 Abnormal MRI, lumbar spine R93.7 Medical History Medical History Abnormal MRI, lumbar spine Alcohol intake above recommended sensible limits Carpal tunnel syndrome right Chest pain (07/01/02) Chronic cough Closed fracture of carpal bone Closed fracture of nasal bones Dermoid cyst of left lower extremity (02/15/17) Essential hypertension History of palpitations see holter of 03/201907/12/20: Per pt. states that was a long time ago, I haven't had any issues since History of pneumothorax 2011 Hydrocele, bilateral Lumbar disc herniation Palpitations Pathological fracture of vertebra with routine healing Perforated tympanic membrane Raynaud's syndrome Sciatica Scrotal Mass Shoulder pain right Tobacco use disorder chews Tubular adenoma of colon (10/21/16) and hyperplastic polyps Unilateral inguinal hernia right Surgical History Surgical History Clavicle fracture Colonoscopy - IV Sedation (10/21/16) History of hydrocelectomy History of nasal surgery broken nose KNEE REPAIR LEFT S/P laparoscopic appendectomy (~12/04/19) Tobacco Smoking/Tobacco Use Status: Former Tobacco Use Smokeless tobacco user: chewing tobacco Passive smoking exposure: No Quit Status: not considering quitting Alcohol Alcohol Intake: current Alcohol intake frequency: 3 or more drinks per day Alcohol type: beer Substance Use Substance use: Rarely Substance use type: marijuana Vital Signs and Lab Results Vital Signs Most Recent Vital Signs in EMR: Most Recent Vital Signs Temp Pulse Resp BP Pulse Ox 36.8 C 68 16 137/98 H 97 03/20/21 06:10 03/20/21 06:10 03/20/21 06:10 03/20/21 06:10 03/20/21 06:10 Lab Results Blood Type / Crossmatch: No Data to Display Complete Blood Count: No Data to Display Complete Metabolic Panel: No Data to Display Liver Function Panel: No Data to Display Coagulation Panel: No Data to Display Cardiac Panel: No Data to Display Arterial Blood Gas: No Data to Display Venous Blood Gas: No Data to Display Pancreas Panel: No Data to Display Thyroid Panel: No Data to Display Infectious Disease: Coronavirus (COVID-19)(PCR) Negative (Negative) 03/18/21 09:52 03/18/21 Coronavirus 2019 Source Nasal/Nares 03/18/21 09:52 03/18/21 Blood Cultures: No Data to Display Toxicology Panel: No Data to Display Anesthesia Assessment and Plan Anesthesia History Personal History: No History of Anesthesia Complications Family History: No Family History of Anesthesia Complications Exercise Tolerance Exercise Tolerance: Metabolic Equivalents>4 Pertinent Negatives Pertinent Negatives: No Symptoms of GERD, No Major Cardiovascular Symptoms or Complaints, No Major Pulmonary Symptoms or Complaints and No History of CVA/TIA Cardiac & Pulmonary Exam Cardiac Exam: Normal S1/S2 Heart Sounds Pulmonary Exam: Clear Bilateral Breath Sounds Cardiac and Pulmonary Comment:: Some clearing of throat since trauma Airway Exam Known Difficult Airway: No Mallampati Class: 1 Mouth Opening: Normal (> 3cm) Thyromental Distance: Greater than 3 cm Neck Range of Motion: Full ROM Neck Circumference: Normal Teeth Condition: Normal Dentition ASA Classification ASA Score: ASA 2 Emergency Case?: No NPO Status NPO Status: NPO Clears >2 hours, Solids >8 hours Anesthesia Plan Resuscitation Status: Full Code Anesthesia Technique: General Anesthesia Airway Planned: Double Lumen Endotracheal Tube Pain Management: Surgeon and patient request nerve block Monitors Used: Standard Monitors
[2021-03-20] MEDS: Lactated Ringers 1,000 ML 100 ML IV (06:59)
[2021-03-20] MEDS: ceFAZolin 2,000 MG in Normal Saline 100 ML 200 MG IVPB (07:45)
--- NOTE | 2021-03-20 07:59 | W.ANESNERVE ---
Nerve Block Single Injection Procedure Date and Time Date Performed: 03/20/21 Procedure Start: 07:14 Location Where Procedure Performed Procedure Location: PACU Reason Performed: Postoperative Analgesia Requesting Provider: Tl Gallagher Timeout Performed Timeout Performed: Yes Monitoring Used ECG, Blood Pressure and SpO2 Sterility Sterility: Hand Hygiene Sedation Given During Procedure Sedation Given (Indicate Dose Given): Versed IV Dose:: 3 mg and Ketamine IV Dose:: 20 mg Patient Mental Status Patient Mental Status: Sedate with meaningful communication Nerve Block 1st Nerve Block: Laterality: Right Block Type: Interscalene Needle / Catheter Used: 80mm SonoPlex II Local Anesthetic Bolus (Indicate Dose Given): Lidocaine used for local infiltration of skin, Injected in 3-5ml increments after negative blood aspiration, Bupivacaine 0.5% Dose:: 5 ml and Exparel Dose:: 5 ml Additives (Indicate Dose Given): None Ultrasound: Sterile probe cover and gel used Ultrasound Image Saved?: Yes Nerve Stimulator: Not Used Paresthesia: None Procedure Tolerated: No Complications and Patient tolerated well Procedure Outcome: Successful Performed By: Ameena Randolph 2nd Nerve Block: Laterality: Right Block Type: Superficial Cervical Plexus Needle / Catheter Used: 80mm SonoPlex II Local Anesthetic Bolus (Indicate Dose Given): Lidocaine used for local infiltration of skin, Injected in 3-5ml increments after negative blood aspiration, Bupivacaine 0.5% Dose:: 2.5 ml and Exparel Dose:: 2.5 ml Additives (Indicate Dose Given): None Ultrasound: Sterile probe cover and gel used Ultrasound Image Saved?: Yes Nerve Stimulator: Not Used Paresthesia: None Procedure Tolerated: No Complications and Patient tolerated well Procedure Outcome: Successful Performed By: Ameena Randolph
--- NOTE | 2021-03-20 09:00 | ROE_ITS ---
Date of service: 03/20/21 Time of Service: 08:00 Operative Note Operative Note DATE OF PROCEDURE: 03/20/21 PRE-OP DIAGNOSIS: Right displaced segmental clavicle fracture POST-OP DIAGNOSIS: same PROCEDURE: Right clavicle ORIF, CPT #57112 SURGEON: Tl Gallagher SUPERVISOR [employer]: Michelle Jackson ANESTHESIA TYPE: Local By Surgeon, General LMA/ETT and Primary Nerve Block Refer to Anesthesia Record ESTIMATED BLOOD LOSS: 10 COMPLICATIONS: None Patient was transported to: PACU Patient's condition: stable Implants: Synthes 3.5 mm LCP superior plate 7-hole with lateral extension. 5x 2.7 mm bicortical locking screws laterally. 1x 3.5 mm bicortical cortex screw medially and 2x 3.5 mm bicortical locking screws medially. 2x 3.5 mm anterior to posterior lag screws. Indications: Please see complete medical record for details. Findings: Widely displaced segmental lateral shaft fracture Procedure Description: In the operating room, general anesthesia was induced. The patient was positioned supine on the operating room table. All bony prominences were well-padded. Preoperative antibiotics were administered. The right clavicle was prepped and draped in the usual sterile fashion. The correct patient, procedure, and side of the procedure were all verified prior to incision. 20 cc of 0.5% bupivacaine containing epinephrine was infiltrated about the planned middle to lateral clavicle incision. The fracture site and medial and lateral extents were localized under fluoroscopic guidance. Sharp dissection was carried through the skin down to bone centrally taking care to raise full- thickness flaps and expose the fracture site. The exposure was then continued full-thickness subperiosteal and incision extended slightly laterally as necessary to expose the lateral aspect of the clavicle. The wound and fracture fragments were copiously irrigated of clot and fibrinous material. Soft tissue attachments were preserved on the significant segmental component. Bone clamps were used to reduce the segmental fragment to both the medial and lateral aspects of the clavicle. Direct visualization as well as fluoroscopic guidance was used to optimize reduction in a near?anatomic fashion. A lag screw was tiffany emilia medially and then laterally from anterior to posterior and sequentially tightened demonstrating excellent compressive and fixation strength. Bone clamps were removed and the construct held appropriate position. Given the lateral extent of the fracture, a plate with lateral extension was selected. Various lengths and anterior and anterior superior options were available and the 7 hole superior plate had the closest fit to the patient's anatomy. It had to be bent to contour the already established reduction and rotated to reduce prominence and sit flush medially and laterally. The plate was provisionally held to bone with a 3.5 mm bicortical compression screw just medial to the fracture. A 2.7 mm bicortical compression screw was placed centrally in the lateral cluster after optimizing plate rotation and position to compress plate to bone. The medial screw was tightened to set the position and likewise compressed plate to bone. An additional more posterior of the cluster 2.7 mm bicortical compression screw was placed laterally to optimize rotation and compression between the lateral aspect the clavicle and the plate. To medial 3.5 mm bicortical locking screws were then placed. 3 lateral 2.7 mm bicortical locking screws were placed. The initial 2 lateral compression screws were removed and replaced with appropriate length locking screws to optimize construct strength and reduce screw head prominence over the plate. All screw lengths and positions were checked. The medialmost screw gave the appearance of being short of bicortical so it was removed, remeasured under fluoroscopic guidance, and found to be appropriate so reinserted. Final AP, cephalic tilt, and [id number] fluoroscopy demonstrated excellent fracture reduction and appropriate hardware placement. The construct was tested and demonstrated robust gross stability. The wound was copiously irrigated with normal saline. Deep tissue was closed in a watertight full-thickness fashion using buried [id number] 2-0 Monocryl stitches. 2-0 Monocryl was used to close the subcutaneous tissue in a buried interrupted fashion. 3-0 Monocryl was used to close skin in a subcuticular running fashion. Skin glue was applied over the incision followed by a Mepilex bandage. The patient awoke from anesthesia without complication and was transferred to the recovery room in a stable condition.
--- NOTE | 2021-03-20 09:32 | DI.RAD_ITS ---
Exam(s) XR CLAVICLE RT EXAM: XR CLAVICLE RT CLINICAL HISTORY: fractured right clavicle. TECHNIQUE: 2D digital imaging was performed. COMPARISON: No exams were available for comparison FINDINGS: Fluoroscopy was provided during orthopedic procedure. Radiologist not present. Images not obtained. See procedure report for details. Total cumulative dose 1.4 cmmGy IMPRESSION: DATA REPOSITORY: RADIATION DOSE DELIVERED:
--- NOTE | 2021-03-20 10:03 | W.PM.DSUDISC ---
Discharge Plan Disposition Patient Disposition: HOME Condition: Stable Discharge Details Reason For Visit: Right clavicle surgery Attending Provider: Tl Gallagher Primary Care Provider: Harpal Damian Home Meds and New Rx's Prescriptions: New naproxen 250 mg tablet 250 - 500 mg PO BID PRN (Reason: Moderate pain or swelling) Qty: 60 RF: 0 aspirin 81 mg tablet,delayed release (DR/EC) 81 mg PO DAILY 14 Days Qty: 14 RF: 0 oxycodone 5 mg tablet 5 - 10 mg PO Q4H PRN (Reason: moderate to severe pain) Qty: 22 RF: 0 Discontinued acetaminophen [Tylenol Extra Strength] 500 mg tablet 500 mg PO Q6H PRNRF: 0 naproxen 375 mg tablet 375 mg PO PRN PRNRF: 0 oxycodone 5 mg tablet 5 mg PO Q6H PRN (Reason: pain) Qty: 10 RF: 0 Discharge Instructions Additional Instructions: Surgery: Right clavicle open reduction internal fixation Activity: You should keep your arm at your side in a neutral position most of the time except for gentle range of motion exercises and essential activities of daily living. Avoid any resisted pulling, pushing, or lifting anything heavier than a coffee. You should use the sling whenever you are out of the house for 6 weeks. At home it is best to remove the sling and rest the forearm on a pillow or support the operative side with your other hand. Do NOT use any power tools or machinery that cause vibrations. A physical therapy prescription will be provided at follow-up if needed. Prescriptions: Aspirin 81 mg take 1 daily to prevent a blood clot for 2 weeks Naproxen 250 mg take 1-2 every 12 hours with a meal as needed for moderate pain Oxycodone 5 mg take 1-2 every 4-6 hours as needed for severe pain You may use [id number] Tylenol (acetaminophen) as needed for mild pain. These pain medications may be taken all at once or in different combinations as needed. Also, recommend Colace (docusate) as a stool softener as surgery and pain medicine cause constipation. An sxvs-ymg-rzbwfvo sleep aid like diphenhydramine (Benadryl) 25-50 mg may be used at night if needed. Dressings: Leave dressing in place until follow-up. Keep clean and dry at all times. Follow-up: 10-[address] Gallagher (04/02/21 at 1:45 PM) Let us know right away if you develop any redness, drainage, fevers, chest pain, or trouble breathing. Do not drink alcohol or drive for at least 24 hours after anesthesia. Please call the office during business hours with any questions or concerns. Referrals: Tl Gallagher MD [ [facility] STAFF PHYSICIAN] - Discharge Orders Discharge Orders: Discharge Order (Routine); Ordered 03/20/21 Ordered By: Tl Gallagher DS: Diagnosis Discharge Diagnosis (1) Fracture of right clavicle: Status: Acute
--- NOTE | 2021-03-20 11:15 | W.ANESPOSTOP ---
Postoperative Evaluation Date, Time and Location Date Performed: 03/20/21 Time Performed: 11:15 Patient Location: Day Surgery Unit Vital Signs Most Recent Imported Vital Signs: Most Recent Vital Signs Temp Pulse Resp BP Pulse Ox 36.0 C L 54 L 15 130/78 94 03/20/21 11:11 03/20/21 11:11 03/20/21 11:11 03/20/21 11:11 03/20/21 11:11 Pain Score Most Recent Pain Score: Most Recent Pain Score Pain Level 0 03/20/21 11:11 Assessment Mental Status: Awake (Alert & Oriented to Patient Baseline) Airway and Respiratory Function: Patent airway with normal (patient baseline) respiratory exam Cardiovascular Function: Hemodynamically Stable Hydration Status: Adequately Hydrated Nausea & Vomiting: No Nausea or Vomiting Pain: Pt. Denies Any Pain Peripheral Nerve Block: Regional nerve block not resolved at time of post operative discharge Teaching Patient Teaching: Discussed Safe Use of Pain Medication Given Recent Anesthesia
== END 2021-03-20 11:44 | disposition home or self-care (01) ==
PROVIDERS: PCP Emergency Medicine; Visit Provider Student in an Organized Health Care Education/Training Program
PROC: (CPT 23515; principal; 2021-03-20 07:30)
DX: S42.001A Fracture of unspecified part of right clavicle, initial encounter for closed fracture (principal); S42.031A Displaced fracture of lateral end of right clavicle, initial encounter for closed fracture; X58.XXXA Exposure to other specified factors, initial encounter
CPT/HCPCS: 23515; 73000; J0690; J1100; J1885; J2001; J2250; J2370; J2405; J2704

== ENCOUNTER 2021-04-02 14:27 | Outpatient (CLI) | payer BC, SELFPAY ==
--- NOTE | 2021-04-02 13:45 | DI.RAD_ITS ---
Exam(s) XR CLAVICLE RT EXAM: XR CLAVICLE RT CLINICAL HISTORY: right clavicle fx f/u. TECHNIQUE: 2D digital imaging was performed. COMPARISON: CR XR CLAVICLE RT from 03/18/2021 XR CLAVICLE RT from 03/20/2021 XR CLAVICLE RT from 03/20/2021 FINDINGS: BONES: There are stable post operative changes present. There has been no change in alignment of the fracture components. No new fracture or dislocation. JOINTS: The joint spaces are well maintained. No joint effusion is present. SOFT TISSUE: Normal. IMPRESSION: Stable postoperative changes. DATA REPOSITORY: RADIATION DOSE DELIVERED:
== END 2021-04-02 14:28 | disposition home or self-care (01) ==
LOC: DIORS 14:28
PROVIDERS: PCP Emergency Medicine; Referring Provider Emergency Medicine; Visit Provider Student in an Organized Health Care Education/Training Program
DX: S42.001D Fracture of unspecified part of right clavicle, subsequent encounter for fracture with routine healing (principal); X58.XXXA Exposure to other specified factors, initial encounter
CPT/HCPCS: 73000

== ENCOUNTER 2021-05-07 09:18 | Outpatient (CLI) | payer BC, SELFPAY ==
--- NOTE | 2021-05-07 08:30 | DI.RAD_ITS ---
Exam(s) XR CLAVICLE RT EXAM: XR CLAVICLE RT CLINICAL HISTORY: right clavicle fx f/u TECHNIQUE: 2D digital imaging was performed of the right clavicle. Two images were obtained. AP and axial views were obtained. COMPARISON: CR XR CLAVICLE RT from 04/02/2021 FINDINGS: BONES: There has been no change in alignment of the right clavicular fracture or orthopedic hardware. No evidence of hardware failure. No bony destructive lesion is seen. JOINTS: No dislocation present. SOFT TISSUE: Normal IMPRESSION: Stable right clavicular fracture. DATA REPOSITORY: RADIATION DOSE DELIVERED:
== END 2021-05-07 09:19 | disposition home or self-care (01) ==
LOC: DIORS 09:19
PROVIDERS: PCP Emergency Medicine; Referring Provider Emergency Medicine; Visit Provider Student in an Organized Health Care Education/Training Program
DX: S42.031D Displaced fracture of lateral end of right clavicle, subsequent encounter for fracture with routine healing (principal)
CPT/HCPCS: 73000

== ENCOUNTER 2021-05-22 22:25 | Outpatient (REF) | payer BC, SELFPAY ==
[2021-05-22 23:20] LABS: Calculated LDL 126 mg/dL (<100); Cholesterol 245 mg/dL (<200); HDL Cholesterol 78 mg/dL (40-60); Triglyceride 207 mg/dL (<150)
[2021-05-23 17:13] LABS: PSA, Screening 1.5 ng/mL (0.0-4.5)
== END 2021-05-22 22:26 | disposition home or self-care (01) ==
LOC: LBN 22:25
PROVIDERS: PCP Emergency Medicine; Visit Provider Emergency Medicine
DX: Z00.00 Encounter for general adult medical examination without abnormal findings (principal); Z13.220 Encounter for screening for lipoid disorders; Z12.5 Encounter for screening for malignant neoplasm of prostate
CPT/HCPCS: 80061; 84153

== ENCOUNTER 2021-10-31 00:51 | Outpatient (CLI) | payer BC, SELFPAY ==
--- NOTE | 2021-10-31 07:30 | DI.RAD_ITS ---
Exam(s) XR CHEST 2V PA LATERAL EXAM: XR CHEST 2V PA LATERAL CLINICAL HISTORY: asthma,j45.909 TECHNIQUE: 2D digital imaging was performed of the chest. Two images were obtained. PA and lateral views were obtained. COMPARISON: CR CHEST 2 VIEWS PA,LAT from 03/31/2012 FINDINGS: MEDIASTINUM: Normal. HEART: Normal. PULMONARY VASCULATURE: Normal. LUNGS: Clear. PLEURAL SPACE: No pleural effusion or pneumothorax. BONE:Within normal limits for the patient's age. Orthopedic plates are seen in the clavicles bilater ally. OTHER FINDINGS:Normal. IMPRESSION: No acute pulmonary findings. DATA REPOSITORY: RADIATION DOSE DELIVERED:
== END 2021-10-31 01:11 ==
PROVIDERS: PCP Nurse Practitioner Family; Visit Provider Emergency Medicine
DX: J45.909 Unspecified asthma, uncomplicated (principal)
CPT/HCPCS: 71046

== ENCOUNTER 2021-10-31 01:31 | Outpatient (CLI) | payer BC, SELFPAY ==
[2021-10-31] MEDS: Albuterol HFA 18 GM 200 PUFF INH IH (16:01)
[2021-10-31] MEDS: Inhaler, Assist Device 1 EACH MC (16:01)
== END 2021-10-31 01:32 | disposition home or self-care (01) ==
PROVIDERS: PCP Nurse Practitioner Family; Visit Provider Emergency Medicine
DX: J45.909 Unspecified asthma, uncomplicated (principal); R06.00 Dyspnea, unspecified; R06.2 Wheezing; Z87.891 Personal history of nicotine dependence; R94.2 Abnormal results of pulmonary function studies
CPT/HCPCS: 94060; 94726; 94729

== ENCOUNTER 2021-11-24 21:17 | Outpatient (REF) | payer BC, SELFPAY ==
[2021-11-24 19:33] LABS: Abs Immature Grans 0.01 10^3/uL (0.0-0.06); Absolute Basophil Count 0.05 10^3/uL (0.0-0.2); Absolute Eosinophil Count 0.11 10^3/uL (0.0-0.7); Absolute Lymphocyte Count 1.51 10^3/uL (1.2-3.4); Absolute Monocyte Count 0.38 10^3/uL (0.1-0.8); Absolute Neutrophil Count 2.81 10^3/uL (1.2-6.7); Eosinophils % 2.3; HCT 42.1 % (40.0-50.0); HGB 14.4 g/dL (13.5-17.5); Immature Grans % 0.2; MCH 32.6 pg (27.0-33.0); MCHC 34.2 % (32.0-36.0); MCV 95.2 fL (80-95); MPV 10.7 fL (8.0-11.0); Monocytes % 7.8; Neutrophils % 57.7; Platelet Count 304 10^3/uL (130-400); RBC 4.42 10^6/uL (4.36-5.78); RDW 12.4 % (11.8-14.1); RDW-SD 43.8 fL; WBC 4.87 10^3/uL (4.4-10.8)
[2021-11-26 11:39] LABS: IgE <2 IU/mL (<158)
== END 2021-11-24 21:18 | disposition home or self-care (01) ==
LOC: LBN 21:17
PROVIDERS: PCP Nurse Practitioner Family; Visit Provider Student in an Organized Health Care Education/Training Program
DX: J44.9 Chronic obstructive pulmonary disease, unspecified (principal)
CPT/HCPCS: 82785; 85025

== ENCOUNTER 2022-01-08 16:38 | Outpatient (REF) | payer BC, SELFPAY ==
[2022-01-09 17:58] LABS: PSA, Screening 1.8 ng/mL (<=4.5)
== END 2022-01-08 16:39 | disposition home or self-care (01) ==
LOC: LBN 16:38
PROVIDERS: PCP Nurse Practitioner Family; Visit Provider Nurse Practitioner Gerontology
DX: N40.1 Benign prostatic hyperplasia with lower urinary tract symptoms (principal); N13.8 Other obstructive and reflux uropathy; Z12.5 Encounter for screening for malignant neoplasm of prostate
CPT/HCPCS: 84153

== ENCOUNTER 2023-01-11 04:50 | Outpatient (CLI) | payer BC, SELFPAY ==
[2023-01-11 11:47] LABS: HGB 14.8 g/dL (13.5-17.5); MCH 31.6 pg (27.0-33.0); MCHC 33.6 % (32.0-36.0); MCV 94 fL (80-95); MPV 9.9 fL (8.0-11.0); Platelet Count 301 10^3/uL (130-400); RBC 4.68 10^6/uL (4.36-5.78); RDW 12.5 % (11.8-14.1); WBC 5.87 10^3/uL (4.4-10.8)
[2023-01-11 12:19] LABS: ALT 36 U/L (16-63); AST 20 U/L (15-37); Albumin 4.2 g/dL (3.4-5.0); Alkaline Phosphatase 63 U/L (46-116); Anion Gap 8.8 mmol/L (3-11); BUN 21 mg/dL (7-18); Bilirubin, Total 0.7 mg/dL (0.2-1.0); CO2 26.2 mmol/L (21.0-32.0); CREATININE 0.9 mg/dL (0.70-1.30); Calcium 9.5 mg/dL (8.5-10.1); Chloride 103 mmol/L (98-107); Estimated GFR 95.97 (mL/min/1.73m2); Glucose 101 mg/dL (74-106); Potassium 4.2 mmol/L (3.5-5.1); Sodium 138 mmol/L (136-145); Total Protein 7.7 g/dL (6.4-8.2)
[2023-01-12 11:41] LABS: Lyme Ab w Rflx to Lyme Confirm Negative (Negative)
[2023-01-14 15:48] LABS: Anaplasma phagocytophilum Negative (Negative); B. miyamotoi PCR Negative (Negative); Babesia divergens/MO-1 Negative (Negative); Babesia duncani Negative (Negative); Babesia microti Negative (Negative); Ehrlichia chaffeensis Negative (Negative); Ehrlichia ewingii/canis Negative (Negative); Ehrlichia muris eauclairensis Negative (Negative)
== END 2023-01-11 04:51 | disposition home or self-care (01) ==
LOC: LBO 04:50
PROVIDERS: PCP Nurse Practitioner Family; Visit Provider Nurse Practitioner Family
DX: R53.83 Other fatigue (principal); W57.XXXD Bitten or stung by nonvenomous insect and other nonvenomous arthropods, subsequent encounter; T14.8XXD Other injury of unspecified body region, subsequent encounter
CPT/HCPCS: 36415; 80053; 85027; 87798; 86618

== ENCOUNTER → 2023-05-10 15:28 | Outpatient (CLI) | payer BC, SELFPAY ==
--- NOTE | 2023-05-10 12:45 | DI.RAD_ITS ---
Exam(s) XR ARTHRITIS SERIES EXAM: XR ARTHRITIS SERIES CLINICAL HISTORY: bilat wrist pain, m25.531,m25/532,? arthritis. TECHNIQUE: 2D digital imaging was performed. Two views of both hands. COMPARISON: No exams were available for comparison FINDINGS: BONES: No acute fracture is present. No bony destructive lesion is seen. JOINTS: No dislocation present. Symmetric severe narrowing of the 1st carpal metacarpal joints bilate rally. There is periarticular spurring as well as mild subluxation laterally of the base of the 1st metacarpal. Multiple adjacent bony fragments. Symmetric bilateral joint space narrowing at the scaph oid trapezium joints. Mild narrowing and spurring at the 2nd metacarpophalangeal joint. Minimal degen erative changes of the mid foot interphalangeal joints, greatest at the 5th distal interphalangeal benoit int. SOFT TISSUE: Normal. IMPRESSION: Unremarkable findings consistent with osteo arthritis greatest at the 1st carpal metacarpal joints an d scaphoid trapezium joints. No bony erosions. DATA REPOSITORY: RADIATION DOSE DELIVERED:
== END ==
PROVIDERS: PCP Nurse Practitioner Family; Visit Provider Nurse Practitioner Family
DX: M18.0 Bilateral primary osteoarthritis of first carpometacarpal joints (principal)
CPT/HCPCS: 73120

== ENCOUNTER 2023-08-06 01:20 | Outpatient (CLI) | payer BC, SELFPAY ==
[2023-08-06 12:30] LABS: Calculated LDL 136 mg/dL (<100); Cholesterol 248 mg/dL (<200); Estimated GFR 84.57 (mL/min/1.73m2); HDL Cholesterol 95 mg/dL (40-60); Potassium 4.2 mmol/L (3.5-5.1); Triglyceride 89 mg/dL (<150)
[2023-08-06 12:34] LABS: Hemoglobin A1C 5.4 % (<5.7)
== END 2023-08-06 01:21 | disposition home or self-care (01) ==
LOC: LOS 01:20
PROVIDERS: PCP Nurse Practitioner Family; Visit Provider Nurse Practitioner Family
DX: I10 Essential (primary) hypertension (principal); Z13.220 Encounter for screening for lipoid disorders; Z13.1 Encounter for screening for diabetes mellitus
CPT/HCPCS: 36415; 80061; 82565; 83036; 84132

== ENCOUNTER 2024-09-03 13:57 | Emergency (ER) | payer BC, SELFPAY ==
--- NOTE | 2024-09-03 14:00 | DI.RAD_ITS ---
Exam(s) XR KNEE LT 3V AP,LAT,MARIA G EXAM: XR KNEE LT 3V AP,LAT,MARIA G CLINICAL HISTORY: knee pain. TECHNIQUE: 2D digital imaging was performed of the left knee. Three images were obtained. AP, late ral and PA tunnel views were obtained. COMPARISON: No exams were available for comparison FINDINGS: BONES: No acute fracture is present. No bony destructive lesion is seen. There is an enthesophyte at the superior patella. There are findings suggesting a prior ACL repair. JOINTS: The knee is normally aligned. There is chondrocalcinosis in the femoral tibial joint. There is a tiny joint effusion. SOFT TISSUE: Normal. IMPRESSION: No acute abnormality. DATA REPOSITORY: RADIATION DOSE DELIVERED:
[2024-09-03 14:07] VITALS: BP 143/93; PULSE 73; RESP 20; TEMP 36.8; O2SAT 98
--- NOTE | 2024-09-03 14:40 | ED.GENADUL_ITS ---
Discharge Plan Disposition Patient Disposition: Home Condition: Stable Discharge Details Clinical Impression: Acute pain of left knee Primary Care Provider: Lucio Stevenson ED Provider: Zac Hoff Home Meds and New Rx's Prescriptions: No Action Trelegy Ellipta 200-62.5-25 mcg blister with device 1 inh inhalation DAILY Qty: 60 8RF tamsulosin 0.4 mg capsule 0.4 mg PO QHS Qty: 90 3RF sildenafil (pulm.hypertension) 20 mg tablet 20 - 100 mg PO DAILY PRN (Reason: sexual activity) Qty: 20 12RF Discharge Instructions Additional Instructions: Continue Motrin and Tylenol as needed for discomfort Wear the brace provided for stability You have been referred to orthopedics for follow-up, you can wait for that appointment or discussed with your primary care physician to have an outpatient MRI ordered for further evaluation of possible internal derangement of your knee HPI General Date/Time Provider Initiated Documentation: 09/03/24 14:08 . Limitations to Documentation: no limitations . Information obtained by: patient . HPI Narrative: 63-year-old gentleman with past medical history of prior left knee ACL and meniscus repair in the 80s presents for evaluation after tweaking his left knee while skiing yesterday. He denies any specific injury. Denies any fall or abnormal movement. He does report a feeling of some slight instability on the outside aspect of his knee. He attempted to wear his knee brace at home but he thinks that it is broken. He denies any numbness or tingling. He states that he has been having some trouble with his knee for quite some time and this injury is just what he needs to finally schedule some follow-up Related Data Home Medications ?Medication ?Instructions ?Recorded ?Confirmed fluticasone fur. 200 mcg-umeclid 1 inh inhalation DAILY #60 ea 12/30/22 09/03/24 62.5 mcg-vilant 25 mcg inhalat.powder (Trelegy Ellipta) tamsulosin 0.4 mg capsule 0.4 mg PO QHS #90 caps 05/10/23 09/03/24 sildenafil (pulm.hypertension) 20 20 - 100 mg (1 - 5 x 20 mg) PO 10/27/23 09/03/24 mg tablet DAILY PRN sexual activity #20 tabs Previous Rx's ?Medication ?Instructions ?Recorded fluticasone fur. 200 mcg-umeclid 1 inh inhalation DAILY #60 ea 12/30/22 62.5 mcg-vilant 25 mcg inhalat.powder (Trelegy Ellipta) tamsulosin 0.4 mg capsule 0.4 mg PO QHS #90 caps 05/10/23 sildenafil (pulm.hypertension) 20 20 - 100 mg (1 - 5 x 20 mg) PO 10/27/23 mg tablet DAILY PRN sexual activity #20 tabs Allergies Allergy/AdvReac Type Severity Reaction Status Date / Time morphine Allergy Intermediate ITCH Verified 09/03/24 14:10 General Stated Complaint: Orthopedic BOUBACAR: 4 Exam Narrative Exam Narrative: Review of Systems: All systems reviewed & are unremarkable except as noted in HPI and below Well-developed, no acute distress NCAT RRR Unlabored respiratory effort Left knee without obvious deformity or effusion noted, there is no ligamentous instability or joint laxity Course Vital Signs Vital signs: Vital Signs Temperature 36.8 C 09/03/24 14:07 Pulse 73 09/03/24 14:07 Respiratory Rate 20 09/03/24 14:07 Blood Pressure 143/93 H 09/03/24 14:07 Pulse Oximetry 98 09/03/24 14:07 Temperature 36.8 C 09/03/24 14:07 Pulse 73 09/03/24 14:07 Respiratory Rate 20 09/03/24 14:07 Blood Pressure 143/93 H 09/03/24 14:07 Blood Pressure Position Supine 09/03/24 14:07 Pulse Oximetry 98 09/03/24 14:07 Pain Level 3 09/03/24 14:07 Medical Decision Making Emergent evaluation of left knee pain. Remote prior operative history. No significant trauma prompting today's visit. Knee exam is benign. X-ray imaging was obtained and there is no obvious bony injury of the knee. I have placed a referral for orthopedic follow-up and recommend he follow-up with his primary care team if he would like an MRI ordered prior to seeing Ortho. He was provided with a hinged knee brace for comfort. Quality:SDOH Health Related Social Needs: Health related social needs housing instability, house d, with risk of homelessness (Z59.811) PFSH All Active Problems (Updated 09/03/24 @ 14:37 by Zac Hoff MD) Acute pain of left knee (Acute) Low back pain (Acute) Ganglion cyst (Acute) Left wrist Bilateral wrist pain (Acute) Fatigue (Acute) Erectile dysfunction (Acute) BPH w urinary obs/LUTS (Acute) Left flank pain (Acute) Asthma-COPD overlap syndrome (Acute) Pulmonary scarring (Acute) Paraseptal emphysema (Acute) Asthma (Chronic) Encounter for annual physical exam (Acute) Fracture of right clavicle (Acute 03/16/21) Back pain (Acute) Scrotal Mass (Acute) Perforated tympanic membrane (Acute) S/P laparoscopic appendectomy (Acute ~12/04/19) Tubular adenoma of colon (Acute 10/21/16) and hyperplastic polyps Raynaud's syndrome (Acute) Tobacco use disorder (Acute) chews Sciatica (Acute) Hydrocele, bilateral (Acute) Closed fracture of nasal bones (Acute) Closed fracture of carpal bone (Acute) Essential hypertension (Acute) Lumbar disc herniation (Acute) Abnormal MRI, lumbar spine (Acute) Medical History History of pneumothorax 2010 Chronic cough History of palpitations see holter of 03/201907/12/20: Per pt. states that was a long time ago, I haven't had any issues since Chest pain (07/01/02) Pathological fracture of vertebra with routine healing Palpitations Alcohol intake above recommended sensible limits Carpal tunnel syndrome right Dermoid cyst of left lower extremity (02/15/17) Shoulder pain right Unilateral inguinal hernia right Surgical History History of hydrocelectomy History of nasal surgery broken nose Clavicle fracture Colonoscopy - IV Sedation (10/21/16) Family History Mother No problems noted. Father Essential hypertension Stroke Sister No problems noted. Brother No problems noted. Brother No problems noted. Grandfather No problems noted. Social History Smoking/Tobacco Use Status: Former Tobacco Use tobacco type: smokeless tobacco Quit Date: 08/02/84 Smokeless tobacco user: snuff Second Hand Exposure: No Smoking risk assessment performed?: Yes Alcohol Intake: current Alcohol Intake frequency: 3 or more drinks per day Alcohol type: beer Drug use: Occasionally Substance use type: marijuana Adopted: No Caregiver/Support person: No Housing: house Do you need help understanding health information?: Often current occupation: [employer] work Pets and animals: Yes Pets and animals: dog(s) Sexually active: Yes Current gender identity: male What is your relationship status?: How often do you get together with friends or relatives?: once per week Do you belong to any clubs or organized social groups?: no Panel score (0-1 are the most socially isolated patients): 1 What type of physical activity do you participate in: bicycling and other Details: skiing, hiking Frequency: 3-4 times per week Seatbelt use: sometimes Helmet use: Yes Helmet use: always Drive intox or ride w/intox logging truck driver: Yes Drive intox or w/intox logging truck driver: rarely Do you feel safe at home: Yes Do you feel safe in your relationship?: Yes
--- NOTE | 2024-09-03 15:13 | DI.VRAD_ITS ---
PROCEDURE INFORMATION: Exam: XR Left Knee Exam date and time: 09/03/2024 2:30 PM Age: 63 years old Clinical indication: Other: Knee pain TECHNIQUE: Imaging protocol: Radiologic exam of the left knee. Views: 3 views. COMPARISON: No relevant prior studies available. FINDINGS: Bones/joints: There is chondrocalcinosis, consistent with calcium pyrophosphate deposition arthropathy. Small knee joint effusion. Soft tissues: Quadriceps enthesophytes. IMPRESSION: No acute fracture or dislocation. Dictated and Authenticated by: Wolf Beatty MD. Orderin Kavya Dobbs MD
== END 2024-09-03 14:47 | disposition home or self-care (01) ==
PROVIDERS: Emergency Provider Emergency Medicine; PCP Nurse Practitioner Family
DX: M25.562 Pain in left knee (principal); I10 Essential (primary) hypertension; Z87.891 Personal history of nicotine dependence
CPT/HCPCS: 73562; 99283

== ENCOUNTER 2024-09-06 01:15 | Outpatient (CLI) | payer BC, SELFPAY ==
[2024-09-06 12:47] LABS: Calculated LDL 139 mg/dL (<100); Cholesterol 231 mg/dL (<200); HDL Cholesterol 82 mg/dL (40-60); Triglyceride 54 mg/dL (<150)
[2024-09-06 12:53] LABS: Hemoglobin A1C 5.6 % (<5.7)
[2024-09-06 21:10] LABS: PSA, Screening 2.4 ng/mL (<=4.5)
== END 2024-09-06 01:16 | disposition home or self-care (01) ==
LOC: LOS 01:16
PROVIDERS: PCP Nurse Practitioner Family; Visit Provider Nurse Practitioner Family
DX: Z13.1 Encounter for screening for diabetes mellitus (principal); Z12.5 Encounter for screening for malignant neoplasm of prostate; Z13.220 Encounter for screening for lipoid disorders
CPT/HCPCS: 36415; 80061; 84153; 83036

== ENCOUNTER 2025-05-17 00:30 | Outpatient (CLI) | payer MEDICARE, BC, SELFPAY ==
[2025-05-17 14:13] LABS: Anion Gap 8.5 mmol/L (3-11); BUN 12 mg/dL (7-18); CO2 29.5 mmol/L (21.0-32.0); Calcium 9.5 mg/dL (8.5-10.1); Chloride 104 mmol/L (98-107); Glucose 95 mg/dL (74-106); Potassium 4.1 mmol/L (3.5-5.1); Sodium 142 mmol/L (136-145)
== END 2025-05-17 00:31 | disposition home or self-care (01) ==
LOC: LOS 00:31
PROVIDERS: PCP Nurse Practitioner Family; Visit Provider Family Medicine
DX: I10 Essential (primary) hypertension (principal)
CPT/HCPCS: 36415; 80048